=== PATIENT | male | born 1955 | race Caucasian/White ===

== ENCOUNTER 2017-09-03 12:38 | Inpatient (IN) | payer OTHER, BC ==
[~2017-09-03] VITALS: Ht 185.4 cm; Wt 120.2 kg
--- NOTE | ~2017-09-03 | D ---
[facility] [place] [address] DISCHARGE SUMMARY Name: CHATO BOURGEOIS Room #: 219-P [facility] IN M.R.#: [id number] Admission: 09/03/17 Attend Phys: Lucio Greenwood MD Discharge: 09/06/17 Date of : 53 Report #: [id number] THIS REPORT FOR: //name// CC: Sam Greenwood Juventino Poole DATE OF SERVICE: 09/06/2017 HISTORY OF PRESENT ILLNESS: The patient is a 62-year-old man with history of ischemic cardiomyopathy and coronary artery disease, as well as history of aflutter, who came to the hospital with heart palpitations. The patient did have an ablation in the past. At this time, he was found to be in aflutter again. Please refer to the admission H and P for details. The patient was hospitalized. He was started on Cardizem drip, that controlled his heart rate. Extractor Puller was consulted. Cardiac echo was obtained. The patient was found to have ejection fraction of 35%. The patient had cardioversion on 09/05/2017. He did well, and he remained in normal sinus rhythm. He is already on diltiazem and Coreg. Amiodarone was added to his regimen. Currently, the patient feels well, and he is asymptomatic. He will be discharged home with close outpatient followup. DISCHARGE DIAGNOSIS: Atrial flutter, status post cardioversion on 09/05/2017. Currently, normal sinus rhythm. SECONDARY DIAGNOSES: Includes coronary artery disease, status post coronary artery bypass grafting surgery in 1997; CHF, systolic dysfunction with current ejection fraction 35%, hypertension, dyslipidemia, gastroesophageal reflux disease, depression, BPH, sleep apnea, obesity, and history of atrial flutter, status post myocardial ablation. DISCHARGE MEDICATIONS: Please refer to the medication reconciliation list. As noted, amiodarone is started, 400 mg a day on this admission. DISPOSITION: The patient is discharged home. FOLLOWUP PLAN: [facility] [address] [place] [address] DISCHARGE SUMMARY Name: CHRISTELLECHATO Room #: 219-P [facility] IN M.R.#: [id number] Admission: 09/03/17 Attend Phys: Lucio Greenwood MD Discharge: 09/06/17 Date of : 53 Report #: [id number] 1. Follow up with the auto garage mechanic in 10 days as advised. 2. Follow up with the primary care physician as planned. <ELECTRONICALLY SIGNED> By: Lucio Greenwood MD 09/06/17 1635 1137 1200 Lucio Greenwood MD /nt
--- NOTE | ~2017-09-03 | 2DMMODE ---
[facility] [address] [place] [address] 2 D/M-MODE ECHOCARDIOGRAM Name: CHATO BOURGEOIS Room #: 219-P ADM IN M.R.#: [id number] Admission: 09/03/17 Attend Phys: Lucio Greenwood Discharge: Date of : 53 Date of Service: 09/04/17 1108 Report #: [id number] THIS REPORT FOR: //name// APPROVED REPORT Study performed: 09/04/2017 10:18:05 EXAM: Comprehensive 2D, Doppler, and color-flow Echocardiogram Patient Location: Echo lab Room #: 219 Status: routine BSA: 2.39 HR: 70 bpm BP: 105/67 mmHg Rhythm: Atrial Fibrillation Other Information Study Quality: Good Indications Atrial Fibrillation Hx: CABG, stents, ISCM, HTN, HLP, COPD 2D Dimensions RVDd: 35.60 mm LVEF(%): 20.56 (>50%) IVSd: 10.40 (7-11mm) LVOT Diam: 21.64 (18-24mm) LVDd: 62.78 mm PWd: 10.01 (7-11mm) Ascending Ao: 33.90 (22-36mm) LVDs: 56.77 (25-40mm) Aortic Root: 37.57 mm Erwin's LVEF: 20.56 % Volumes Left Atrial Volume (Systole) Single Plane 4CH: 52.99 mL Single Plane 2CH: 60.22 mL LA ESV Index: 25.00 mL/m2 Aortic Valve AoV Peak Mark.: 1.43 m/s AO Peak Gr.: 8.13 mmHg LVOT Max P.67 mmHg LVOT Max V: 0.80 m/s LESLI Vmax: 2.07 cm2 Mitral Valve MV Decel. Time: 208.17 ms [facility] [place] [address] 2 D/M-MODE ECHOCARDIOGRAM Name: [facility] Room #: 219-[facility] IN M.R.#: [id number] Admission: 09/03/17 Attend Phys: Lucio Greenwood Discharge: Date of : 53 Date of Service: 09/04/17 1108 Report #: [id number] E Max Mark.: 0.78 m/s Pulmonary Valve PV Peak Mark.: 1.11 m/s PV Peak Gr.: 5.05 mmHg Tricuspid Valve TR Peak Mark.: 2.20 m/s RAP Estimate: 5.00 mmHg TR Peak Gr.: 19.48 mmHg PA Pressure: 24.00 mmHg Left Ventricle Left ventricle is moderately dilated. There is normal left ventricular wall thickness. Left ventricular systolic function is moderately decreased. LVEF 30-35%. Inferior and inferolateral hypokinesis This study is not technically sufficient to allow evaluation of the LV diastolic function due to atrial fibrillation. Right Ventricle The right ventricle is normal size. Right ventricle is mildly hypokinetic. Atria The left atrium size is normal. The right atrium size is normal. Aortic Valve The aortic valve is mildly sclerotic. Mild aortic regurgitation. There is no aortic valvular stenosis. Mitral Valve The mitral valve is normal in structure. Trace to mild mitral regurgitation. Tricuspid Valve The tricuspid valve is normal in structure. Trace tricuspid regurgitation. Estimated PAP is 25mmHg. Pulmonic Valve The pulmonary valve is normal in structure. Mild pulmonic regurgitation. Great Vessels The aortic root measures at the upper limits of normal. The ascending aorta is normal in size. IVC is normal in size and collapses >50% with inspiration. [facility] [address] [place] [address] 2 D/M-MODE ECHOCARDIOGRAM Name: [facility] Room #: 219-P ADM IN M.R.#: [id number] Admission: 09/03/17 Attend Phys: Lucio Greenwood Discharge: Date of : 53 Date of Service: 09/04/17 1108 Report #: [id number] Pericardium There is no pericardial effusion. <Conclusion> Left ventricular systolic function is moderately decreased. LVEF 35%. Inferior and inferolateral hypokinesis The aortic valve is mildly sclerotic. Mild aortic regurgitation, no stenosis The mitral valve is normal in structure. Trace to mild mitral regurgitation. Pulmonary artery pressure of 25mmHg There is no pericardial effusion. <ELECTRONICALLY SIGNED> By: Bill Bianchi MD, [facility] 09/04/17 1108 1108 1108 Bill Bianchi MD, FAC /INF
--- NOTE | ~2017-09-03 | EKG ---
[place] [address] [facility] [place] [address] ELECTROCARDIOGRAM REPORT Name: CHATO BOURGEOIS Room #: 219-P ADM IN M.R.#: [id number] Admission: 09/03/17 Attend Phys: Lucio Greenwood MD Discharge: Date of : 53 Report #: [id number] THIS REPORT FOR: //name// [facility] Test Date: 2017-09-04 Test Time: 06:05:43 Pat Name: CHATO BOURGEOIS Department: Room: 219 P Gender: M Outsewer: MICHEL : 1955 Requested By: Bill Bianchi Order Number: [id number] MD: Bill Bianchi Measurements Intervals [place] Rate: 63 P: SC: QRS: -45 QRSD: 105 T: 52 QT: 468 QTc: 480 Interpretive Statements Atrial flutter LAD, consider left anterior fascicular block Poor R wave progression Compared to ECG 08/07/2013 02:41:31 Heart rate has slowed Electronically Signed On 09-04-2017 8:46:07 GATE SERVICES SUPERVISOR by Bill Bianchi [email or web address] <ELECTRONICALLY SIGNED> By: Bill Bianchi MD, [facility] 09/04/17 0846 Bill Bianchi MD, [facility] /EPI
--- NOTE | ~2017-09-03 | EKG ---
[address] [place] [address] ELECTROCARDIOGRAM REPORT Name: CHATO BOURGEOIS Room #: 219-P ADM IN M.R.#: [id number] Admission: 09/03/17 Attend Phys: Lucio Greenwood MD Discharge: Date of : 53 Report #: [id number] THIS REPORT FOR: //name// [facility] ED Test Date: 2017-09-03 Test Time: 12:52:54 Pat Name: CHATO BOURGEOIS Department: Room: 219 Gender: M Waiter: YENY : 1955 Requested By: Yared Washburn Order Number: [id number] MD: Bill Bianchi Measurements Intervals [place] Rate: 152 P: 207 ID: 80 QRS: -13 QRSD: 111 T: 75 QT: 300 QTc: 477 Interpretive Statements Supraventricular tachycardia Nonspecific ST segment abnormality No previous ECGs available for comparison Electronically Signed On 09-04-2017 8:40:24 MORTISING MACHINE OPERATOR by Bill Bianchi [email or web address] <ELECTRONICALLY SIGNED> By: Bill Bianchi MD, [facility] 09/04/17 0840 1252 1252 Bill Bianchi MD, FACC /EPI
--- NOTE | ~2017-09-03 | EKG ---
[address] [address] ELECTROCARDIOGRAM REPORT Name: CHATO BOURGEOIS Room #: 219-P ADM IN M.R.#: [id number] Admission: 09/03/17 Attend Phys: Lucio Greenwood MD Discharge: Date of : 53 Report #: [id number] THIS REPORT FOR: //name// [facility] Test Date: 2017-09-05 Test Time: 08:53:24 Pat Name: CHATO BOURGEOIS Department: Room: 219 P Gender: M Forklift Picker: MADINA : 1955 Requested By: Bill Bianchi Order Number: [id number] MD: Bill Bianchi Measurements Intervals [place] Rate: 54 P: 21 MS: 217 QRS: -42 QRSD: 117 T: 41 QT: 480 QTc: 455 Interpretive Statements Sinus rhythm Borderline prolonged [place] interval LAD Compared to ECG 09/04/2017 06:05:43 Atrial flutter no longer present Electronically Signed On 09-06-2017 7:43:48 LINK FABRIC MACHINE OPERATOR by Bill Bianchi [email or web address] <ELECTRONICALLY SIGNED> By: Bill Bianchi MD, [facility] 09/06/17 0743 2 Bill Bianchi MD, [facility] /EPI
--- NOTE | ~2017-09-03 | CATHLAB ---
[facility] [address] [place] [address] INVASIVE PROCEDURE REPORT Name: CHATO BOURGEOIS Room #: 219-P ADM IN M.R.#: [id number] Admission: 09/03/17 Attend Phys: Lucio Greenwood Discharge: Date of : 53 Date of Service: 09/05/17914 Report #: [id number] THIS REPORT FOR: //name// CC: Sam Castellanos MD [facility] Lucio Graceprieto Poole DATE OF DICTATION: 09/05/2017. PROCEDURE: Cardioversion. INDICATIONS: Atrial flutter. PROCEDURE IN DETAIL: The potential benefits and risks of the procedure were discussed at length with the patient who understood. Full written and informed consent was obtained. The patient was sedated with intravenous Versed and fentanyl, 50 biphasic joules were applied to the chest with prompt conversion of atrial flutter to sinus rhythm. He remained in hemodynamically, electrically and neurologically stable condition and was transported back to his hospital room. SUMMARY: Successful cardioversion of atrial flutter to sinus rhythm. <ELECTRONICALLY SIGNED> By: Bill Bianchi MD, [facility] 09/06/17 0744 0915 1048 Bill Bianchi MD, FACC /nt
--- NOTE | ~2017-09-03 | H ---
[facility] [place] [address] HISTORY AND PHYSICAL Name: CHATO BOURGEOIS Room #: 219-P ADM IN M.R.#: [id number] Admission: 09/03/17 Attend Phys: Lucio Greenwood MD Discharge: Date of : 53 Report #: [id number] THIS REPORT FOR: //name// CC: Sam Greenwood Juventino Poole DATE OF SERVICE: 09/03/2017 CHIEF COMPLAINT: Heart palpitations. HISTORY OF PRESENT ILLNESS: The patient is a 62-year-old man with complicated cardiac history, who developed heart palpitations earlier today. The patient has history of atrial flutter, and he is status post myocardial ablation. The patient also has history of coronary artery disease and congestive heart failure. His last followup with fiberglass finisher was more than a year ago. He has not followed up since then. The patient states that he developed heart palpitations earlier today. He also had shortness of breath. He came to the Emergency Room. He was found to have atrial flutter. He is started on Cardizem drip. Heart rate was in 150s. Now heart rate is much better, and the patient's symptoms have improved significantly. PAST MEDICAL HISTORY: 1. Coronary artery disease, status post coronary artery bypass grafting surgery in 1997. 2. Congestive heart failure, ejection fraction 35-40% based on echo in 02/2016. 3. Hypertension. 4. Dyslipidemia. 5. GERD. 6. Depression. 7. BPH. 8. History of atrial flutter, status post myocardial ablation. 9. Sleep apnea. CURRENT MEDICATIONS: Reviewed and documented in the patient's chart. FAMILY HISTORY: The patient reports strong family history of coronary artery disease. Both parents have coronary artery bypass grafting surgery. SOCIAL HISTORY: The patient does not smoke cigarettes. He reports occasional alcohol intake. REVIEW OF SYSTEMS: As above in HPI section. All others negative. [facility] [address] [place] [address] HISTORY AND PHYSICAL Name: CHATO BOURGEOIS Room #: 219-P ADM IN [facility].#: [id number] Admission: 09/03/17 Attend Phys: Lucio Greenwood MD Discharge: Date of : 53 Report #: [id number] PHYSICAL EXAMINATION: GENERAL: The patient is a middle-aged man who is in no apparent distress. VITAL SIGNS: His blood pressure is 141/88, heart rate is between 130 and 140, respiration is 20, temperature is 97.0. HEENT: Pupils are equal. Eye movements are normal. The patient has anicteric sclerae. NECK: Supple. He has no JVD. Carotid bruits are not appreciated. RESPIRATORY: Chest moves symmetrically with breathing. LUNGS: Clear to auscultation bilaterally. CARDIOVASCULAR: The patient has irregularly irregular heart rate. He has no murmurs, gallops or rubs. GASTROINTESTINAL: Abdomen is soft, nontender, and nondistended. The patient has no hepatomegaly or splenomegaly. MUSCULOSKELETAL: There is no edema, cyanosis or clubbing. No joint deformities appreciated. SKIN: The patient has no skin lesions. Skin is dry and warm. LABORATORY DATA: Basic metabolic profile is normal. Random glucose is 151. Liver function tests are normal. Troponin is undetectable. CBC with differential is normal. Platelets slightly low at 149. ASSESSMENT AND PLAN: 1. Atrial flutter, recurrent problem. The patient is on Cardizem drip. Symptomatically, he feels much better. Cardiology has already evaluated the patient. Consultation is very much appreciated. 2. History of coronary artery disease, status post CABG in 1997. No chest pain. EKG shows no ST segment changes. Troponin is undetectable. 3. History of congestive heart failure, with ejection fraction between 30% and 35%, based on echo in 02/2016. Cardiac echo ordered. 4. Dyslipidemia. On Crestor. 5. Sleep apnea. Continue CPAP per home regimen. 6. Deep venous thrombosis prophylaxis. Unnecessary, the patient is on Eliquis. <ELECTRONICALLY SIGNED> By: Lucio Greenwood MD 09/05/17 0746 1729 1805 Lucio Greenwood MD /nt
--- NOTE | ~2017-09-03 | EKG ---
[address] [address] ELECTROCARDIOGRAM REPORT Name: CHATO BOURGEOIS Room #: 219-P ADM IN M.R.#: [id number] Admission: 09/03/17 Attend Phys: Lucio Greenwood MD Discharge: Date of : 53 Report #: [id number] THIS REPORT FOR: //name// [facility] Test Date: 2017-09-05 Test Time: 06:35:37 Pat Name: CHATO BOURGEOIS Department: Room: 219 P Gender: M Acid Conditioner: MADINA : 1955 Requested By: Sam Castellanos Order Number: [id number] MD: Bill Bianchi Measurements Intervals [place] Rate: 72 P: [place]: QRS: -44 QRSD: 107 T: 58 QT: 430 QTc: 471 Interpretive Statements Atrial flutter Leftward axis Poor R wave progression Compared to ECG 09/04/2017 06:05:43 No significant change was found Electronically Signed On 09-06-2017 7:38:35 TILE CONDUIT LAYER by Bill Bianchi [email or web address] <ELECTRONICALLY SIGNED> By: Bill Bianchi MD, [facility] 09/06/17 0738 4 4 Bill Bianchi MD, [facility] /EPI
[2017-09-03 04:00] VITALS: BP 124/77
[~2017-09-03 12:38] MED LIST: ADVAIR HFA 1112 UNIT INH; ASPIRIN325; ASPIRIN325 PO; ATENOLOL 100MG100 M2 PO; ATENOLOL 50MG T50 M1 PO; CARDIZEM CD 18180 M3 PO; CARVEDILOL6.25 MG PO; COREG PO; COZAAR 25 MG TA25 MG PO; CRESTOR40 MG PO; FLOMAX PO; IMDUR 60 MG TAB60 M1 PO; LASIX 20 MG TAB20 MG PO; NITROGLYCERIN0.4 MG SUBLING; PLAVIX 75 MG TA75 M1 PO; PLAVIX 75 MG TA75 MG PO; POTASSIUM20 PO; PRADAXA150 MG PO; PRILOSEC 20 MG20 MG PO; PROAIR HFA8.5 GM INH; PROTONIX40 M2 PO; PROZAC40 MG PO; SLOW-MAG64 MG PO; XANAX 0.5 MG0.5 M1 PO; ZETIA10 MG PO; ZYRTEC10 M1 PO
[2017-09-03 12:51] VITALS: BP 150/72
[2017-09-03 13:10] LABS: HEMATOCRIT 46.7 % (42.0-52.0); HEMOGLOBIN 16.2 gm/dL (14.0-18.0); MCH 31.8 pg (26.0-34.0); MCHC 34.6 g/dL (28.0-37.0); MCV 91.9 fL (80.0-100.0); PLATELET COUNT 149 thou/uL (150-400); RBC 5.08 mil/uL (4.50-6.00); RDW 13.5 % (10.5-14.5); WBC 7.6 thou/uL (4.0-11.0)
[2017-09-03 13:12] LABS: MANUAL DIFF YES
[2017-09-03] MEDS ORDERED: ASPIR 8181 MG PO (13:17)
[2017-09-03] MEDS ORDERED: PACERONE 200 M200 M1 PO (13:18)
[2017-09-03] MEDS ORDERED: CARVEDILOL6.25 MG (13:18)
[2017-09-03 13:19] LABS: ANION GAP 10 mmol/L (7-16); BUN 7 mg/dL (7-18); CALCIUM 9.6 mg/dL (8.5-10.1); CHLORIDE 102 mmol/L (98-107); CO2 26 mmol/L (21-32); CREATININE 1.2 mg/dL (0.7-1.3); GLUCOSE 151 mg/dL (74-106); POTASSIUM 3.8 mmol/L (3.5-5.1); SODIUM 138 mmol/L (136-145)
[2017-09-03] MEDS ORDERED: COZAAR 25 MG TA25 M1 PO (13:19)
[2017-09-03] MEDS ORDERED: ELIQUIS5 MG PO (13:19)
[2017-09-03] MEDS ORDERED: PRILOSEC OTC20 MG PO (13:20)
[2017-09-03 13:27] LABS: ALKALINE PHOSPHATASE 125 U/L (46-116); SGOT 70 U/L (15-37); SGPT 81 U/L (30-65); TOTAL BILIRUBIN 0.4 mg/dL (<0.1-1.0); TOTAL PROTEIN 7.8 g/dL (6.4-8.2); TROPONIN-I < 0.04 ng/mL (<0.06)
[2017-09-03 13:34] LABS: ABSOLUTE NEUTROPHILS 5.6 thou/uL (1.4-8.2); TOTAL CELL COUNT 100
[2017-09-03 15:36] VITALS: BP 141/88
[2017-09-03 19:06] VITALS: BP 101/64
[2017-09-03 23:58] VITALS: BP 120/64
[2017-09-04 04:16] VITALS: BP 118/62
[2017-09-04 08:42] VITALS: BP 105/67
[2017-09-04 12:08] VITALS: BP 117/64
[2017-09-04 15:54] VITALS: BP 100/56
[2017-09-04 20:15] VITALS: BP 113/62; BP 138/64
[2017-09-05 04:15] VITALS: BP 113/62
[2017-09-05 12:25] VITALS: BP 133/68
[2017-09-05 15:36] VITALS: BP 108/54
[2017-09-05 20:54] VITALS: BP 111/50
[2017-09-06 00:01] VITALS: BP 95/54
[2017-09-06 04:15] VITALS: BP 114/56
[2017-09-06 08:00] VITALS: BP 124/56
[2017-09-06 11:21] VITALS: BP 119/54
[2017-09-06] MEDS ORDERED: PACERONE 200 M200 M1 PO (11:41)
[2017-09-06] MEDS ORDERED: CARVEDILOL12.5 MG PO (11:41)
[2017-09-06 11:59] VITALS: BP 119/54
== END 2017-09-06 14:00 | disposition home or self-care (01) | DRG 309 ==
LOC: ER 12:38 → 2N 14:42 → EROBS 14:42 → 2N 15:38 → ENTRNSPT 09-06 13:46 → EDTRNSPTSTS 09-06 13:49 → 2N 09-06 14:00
PROVIDERS: Emergency Medicine
PROC: 5A2204Z Restoration of Cardiac Rhythm, Single (ICD-10-PCS; principal; 2017-09-05)
DX: I48.92 Unspecified atrial flutter (principal); I50.20 Unspecified systolic (congestive) heart failure; E78.00 Pure hypercholesterolemia, unspecified; K21.9 Gastro-esophageal reflux disease without esophagitis; F32.9 Major depressive disorder, single episode, unspecified; F41.9 Anxiety disorder, unspecified; I48.0 Paroxysmal atrial fibrillation; E78.5 Hyperlipidemia, unspecified; I25.5 Ischemic cardiomyopathy; N40.0 Benign prostatic hyperplasia without lower urinary tract symptoms; J44.9 Chronic obstructive pulmonary disease, unspecified; I25.10 Atherosclerotic heart disease of native coronary artery without angina pectoris; I11.0 Hypertensive heart disease with heart failure; E66.9 Obesity, unspecified; G47.33 Obstructive sleep apnea (adult) (pediatric); Z79.899 Other long term (current) drug therapy; Z87.891 Personal history of nicotine dependence; I25.2 Old myocardial infarction; Z95.1 Presence of aortocoronary bypass graft; Z68.35 Body mass index [BMI] 35.0-35.9, adult; Z95.5 Presence of coronary angioplasty implant and graft; Z90.49 Acquired absence of other specified parts of digestive tract
CPT/HCPCS: 10194

== ENCOUNTER 2018-08-27 14:12 | Inpatient (IN) | payer OTHER, BC ==
[~2018-08-27] VITALS: Ht 185.4 cm; Wt 119.9 kg
--- NOTE | ~2018-08-27 | EKG ---
[address] [address] ELECTROCARDIOGRAM REPORT Name: CHATO BOURGEOIS Room #: 210-P ADM IN M.R.#: [id number] Admission: 08/27/18 Attend Phys: Sam Castellanos MD, Discharge: Date of : 53 Report #: [id number] THIS REPORT FOR: //name// [facility] Test Date: 2018-08-30 Test Time: 07:18:52 Pat Name: CHATO BOURGEOIS Department: Room: 210 P Gender: M Management Intern: MADINA : 1955 Requested By: Mandy Santos Order Number: [id number] MD: Sha Alonso Measurements Intervals [place] Rate: 61 P: 64 [place]: 202 QRS: -27 QRSD: 120 T: 43 QT: 513 QTc: 517 Interpretive Statements Sinus rhythm Nonspecific intraventricular conduction delay Compared to ECG 08/29/2018 08:26:53 No significant changes Electronically Signed On 08-30-2018 12:04:17 HANDKERCHIEF MAKER by Sha Alonso [email or web address] <ELECTRONICALLY SIGNED> By: Sha Alonso MD 08/30/18 1204 7 7 Sha Alonso MD /AZAM
--- NOTE | ~2018-08-27 | TEE ---
[facility] [place] [address] TRANSESOPHAGEAL ECHOCARDIOGRAM Name: CHATO BOURGEOIS Room #: 210-P ADM IN M.R.#: [id number] Admission: 08/27/18 Attend Phys: Sam Castellanos, Discharge: Date of : 53 Date of Service: 08/29/18 0828 Report #: [id number] THIS REPORT FOR: //name// APPROVED REPORT Study performed: 08/29/2018 07:46:20 EXAM: Comprehensive 2D, Doppler, and color-flow Echocardiogram Patient Location: [facility] Room #: 210 Status: routine BSA: 2.42 HR: 88 bpm BP: 116/73 mmHg Rhythm: Atrial Fibrillation Other Information Study Quality: Excellent Indications Atrial Fibrillation Echo Enhancing Agent Indication: Rule out Shunt Agent(s) / Amount(s) Used: Agitated Saline 7 cc Procedure After obtaining informed consent, patient underwent transesophageal echo in the [facility]. Type of Sedation : Conscious Sedation Sedation was administered by Marry Khan RN. Sedation was achieved intravenously with: Versed (6 mg) Fentanyl (75 mcg) Transesophageal probe was inserted and advanced into esophagus without difficulty by Bill Bianchi MD. Echo enhancement indication: R/O Septal defect. Echo enhancement agent administered: Agitated Saline The NANDO was performed without complications. Throughout the procedure, the blood pressure, pulse oximetry, cardiac rhythm, and rate were monitored. The patient tolerated the procedure without adverse effects. Recovery from conscious sedation was uneventful and vital signs were stable. [facility] [address] [place] [address] TRANSESOPHAGEAL ECHOCARDIOGRAM Name: [facility] Room #: 210-P ADM IN M.R.#: [id number] Admission: 08/27/18 Attend Phys: Sam Castellanos, Discharge: Date of : 53 Date of Service: 08/29/18 0828 Report #: [id number] Left Ventricle Left ventricle is dilated. There is normal left ventricular wall thickness. Left ventricular ejection fraction is severely decreased. LVEF 20%. Right Ventricle The right ventricle is normal size. Right ventricle is hypokinetic. Atria Left atrium is dilated. No thrombus is visualized in the left atrium or appendage. No shunting by contrast bubble injection Right atrium is dilated. Aortic Valve The aortic valve is minimally sclerotic Trace aortic regurgitation. There is no aortic valvular stenosis. Mitral Valve The mitral valve is normal in structure. Mild mitral regurgitation. No evidence of mitral valve stenosis. Tricuspid Valve The tricuspid valve is normal in structure. Mild tricuspid regurgitation. Pulmonic Valve The pulmonary valve is normal in structure. There is no pulmonic valvular regurgitation. Great Vessels The aortic root is normal in size. The ascending aorta is normal in size. IVC is normal in size and collapses >50% with inspiration. Pericardium There is no pericardial effusion. <Conclusion> Left ventricular ejection fraction is severely decreased. LVEF 20%. Both atria are dilated. No thrombus is visualized in the left atrium or appendage. No shunting by contrast bubble injection The aortic valve is minimally sclerotic, no stenosis. Trace aortic regurgitation. [facility] [address] [place] [address] TRANSESOPHAGEAL ECHOCARDIOGRAM Name: CHATO BOURGEOIS Room #: 210-P ADM IN M.R.#: [id number] Admission: 08/27/18 Attend Phys: Sam Castellanos, Discharge: Date of : 53 Date of Service: 08/29/18827 Report #: [id number] The mitral valve is normal in structure. Mild mitral regurgitation. There is no pericardial effusion. <ELECTRONICALLY SIGNED> By: Bill Bianchi MD, FACC 08/29/18827 7 7 Bill Bianchi MD, FACC /INF
--- NOTE | ~2018-08-27 | CATHLAB ---
[facility] [place] [address] INVASIVE PROCEDURE REPORT Name: CHATO BOURGEOIS Room #: 210-P [facility] IN M.R.#: [id number] Admission: 08/27/18 Attend Phys: Sam Castellanos, Discharge: 08/30/18 Date of : 53 Date of Service: 08/29/18802 Report #: [id number] THIS REPORT FOR: //name// CC: Sam Grahamradha Poole PROCEDURE: Cardioversion INDICATION: Atrial flutter. PROCEDURE: The potential benefits and risks of the procedure were discussed at length with the patient who understood. Full written and informed consent was obtained. The patient was sedated with intravenous Versed and fentanyl, 20 biphasic synchronous joules were applied to the chest with prompt conversion of atrial flutter to sinus rhythm. He remained in hemodynamically, electrically and neurologically stable condition following the procedure and was transported back to his hospital room. <ELECTRONICALLY SIGNED> By: Blil Bianchi MD, FACC 08/30/18 1650 2 0811 Bill Bianchi MD, FACC /nt
--- NOTE | ~2018-08-27 | EKG ---
[address] [address] ELECTROCARDIOGRAM REPORT Name: CHATO BOURGEOIS Room #: 210-P ADM IN M.R.#: [id number] Admission: 08/27/18 Attend Phys: Sam Castellanos MD, Discharge: Date of : 53 Report #: [id number] THIS REPORT FOR: //name// [facility] Test Date: 2018-08-29 Test Time: 08:26:53 Pat Name: CHATO BOURGEOIS Department: Room: 210 P Gender: M Bridge Crane Operator: GR : 1955 Requested By: Sam Castellanos Order Number: [id number] MD: Bill Bianchi Measurements Intervals [place] Rate: 54 P: 8 [place]: 219 QRS: -28 QRSD: 123 T: 26 QT: 553 QTc: 525 Interpretive Statements Sinus rhythm Borderline prolonged [place] interval Compared to ECG 08/28/2018 07:31:46 Atrial flutter no longer present Electronically Signed On 08-29-2018 8:54:48 BUSINESS TRANSFORMATION MANAGER by Bill Bianchi [email or web address] <ELECTRONICALLY SIGNED> By: Bill Bianchi MD, [facility] 08/29/18 0854 5 5 Bill Bianchi MD, [facility] /EPI
--- NOTE | ~2018-08-27 | EKG ---
[address] [address] ELECTROCARDIOGRAM REPORT Name: CHATO BOURGEOIS Room #: 210-P ADM IN M.R.#: [id number] Admission: 08/27/18 Attend Phys: Sam Castellanos MD, Discharge: Date of : 53 Report #: [id number] THIS REPORT FOR: //name// [facility] Test Date: 2018-08-28 Test Time: 07:31:46 Pat Name: CHATO BOURGEOIS Department: Room: 210 P Gender: M Track Service Person: MADINA : 1955 Requested By: Tiffanie Sales Order Number: [id number] MD: Wilmer Rodríguez Measurements Intervals [place] Rate: 94 P: IN: QRS: -18 QRSD: 113 T: 121 QT: 388 QTc: 486 Interpretive Statements Atrial flutter Borderline intraventricular conduction delay Compared to ECG 09/05/2017 08:53:24 Sinus rhythm no longer present Electronically Signed On 08-28-2018 8:23:19 INSTRUMENT SPECIALIST by Wilmer Rodríguez [email or web address] <ELECTRONICALLY SIGNED> By: Wilmer Rodríguez MD 08/28/18 0823 0731 0731 Wilmer Rodríguez MD /AZAM
--- NOTE | ~2018-08-27 | 2DMMODE ---
[facility] [address] [place] [address] 2 D/M-MODE ECHOCARDIOGRAM Name: CHATO BOURGEOIS Room #: 210-P ADM IN M.R.#: [id number] Admission: 08/27/18 Attend Phys: Sam Castellanos, Discharge: Date of : 53 Date of Service: 08/28/18 0905 Report #: [id number] THIS REPORT FOR: //name// APPROVED REPORT Study performed: 08/28/2018 08:23:04 EXAM: Comprehensive 2D, Doppler, and color-flow Echocardiogram Patient Location: Echo lab Room #: 210 Status: routine BSA: 2.42 HR: 100 bpm BP: 116/73 mmHg Rhythm: Atrial Fibrillation Other Information Study Quality: Adequate Indications Atrial Fibrillation Acute on chronic CHF. Hx: AFib, ablation, ISCM, CABG, COPD 2D Dimensions RVDd: 37.23 mm IVSd: 10.68 (7-11mm) LVOT Diam: 22.17 (18-24mm) LVDd: 62.48 mm PWd: 8.77 (7-11mm) Ascending Ao: 34.97 (22-36mm) LVDs: 58.52 (25-40mm) Aortic Root: 40.20 mm Volumes Left Atrial Volume (Systole) Single Plane 4CH: 57.30 mL Single Plane 2CH: 61.70 mL LA ESV Index: 26.00 mL/m2 Aortic Valve AoV Peak Mark.: 1.26 m/s AO Peak Gr.: 6.41 mmHg LVOT Max P.48 mmHg LVOT Max V: 0.91 m/s LESLI Vmax: 2.79 cm2 Mitral Valve MV Decel. Time: 149.93 ms MV E Max Mark.: 0.97 m/s [facility] [address] [place] [address] 2 D/M-MODE ECHOCARDIOGRAM Name: [facility] Room #: 210 ADM IN M.R.#: [id number] Admission: 08/27/18 Attend Phys: Sam Castellanos, Discharge: Date of : 53 Date of Service: 08/28/18 0905 Report #: [id number] Pulmonary Valve PV Peak Mark.: 0.94 m/s PV Peak Gr.: 3.61 mmHg Tricuspid Valve TR Peak Mark.: 2.33 m/s RAP Estimate: 5.00 mmHg TR Peak Gr.: 22.00 mmHg PA Pressure: 27.00 mmHg Left Ventricle Left ventricle is moderately dilated. There is normal left ventricular wall thickness. Left ventricular systolic function is severely decreased.globally LVEF is 20-25%. This study is not technically sufficient to allow evaluation of the LV diastolic function. Right Ventricle The right ventricle is normal size. Right ventricle is mild to moderately hypokinetic. Atria The left atrium size is normal. The right atrium size is normal. Aortic Valve The Aortic valve is mildly sclerotic. Mild aortic regurgitation. There is no aortic valvular stenosis. Mitral Valve The mitral valve is normal in structure. Mild mitral regurgitation. Tricuspid Valve The tricuspid valve is normal in structure. Mild tricuspid regurgitation. Estimated PAP is 30mmHg. Pulmonic Valve The pulmonary valve is normal in structure. Trace pulmonic regurgitation. Great Vessels Aortic root is mildly dilated. The ascending aorta is normal in size. IVC is normal in size and collapses >50% with inspiration. Pericardium [facility] [address] [place] [address] 2 D/M-MODE ECHOCARDIOGRAM Name: CHATO BOURGEOIS Room #: 210-P ADM IN M.R.#: [id number] Admission: 08/27/18 Attend Phys: Sam Castellanos, Discharge: Date of : 53 Date of Service: 08/28/18 0905 Report #: [id number] There is no pericardial effusion. <Conclusion> Left ventricle is moderately dilated. Left ventricular systolic function is severely decreased.globally LVEF is 20-25%. This study is not technically sufficient to allow evaluation of the LV diastolic function. Right ventricle is mild to moderately hypokinetic. The left atrium size is normal. The Aortic valve is mildly sclerotic. Mild aortic regurgitation. Mild mitral regurgitation. Mild tricuspid regurgitation. Estimated PAP is 30mmHg. Aortic root is mildly dilated. There is no pericardial effusion. <ELECTRONICALLY SIGNED> By: Sam Castellanos MD, FACC 08/28/18904 4 4 Sam Castellanos MD, FAC /INF
[~2018-08-27 14:12] MED LIST changes: +ASPIR 8181 MG PO; +CARVEDILOL12.5 MG PO; +CARVEDILOL6.25 MG; +COZAAR 25 MG TA25 M1 PO; +ELIQUIS5 MG PO; +PACERONE 200 M200 M1 PO; +PRILOSEC OTC20 MG PO
[2018-08-27 14:34] VITALS: BP 117/80
[2018-08-27 16:24] LABS: HEMATOCRIT 33.2 % (42.0-52.0); HEMOGLOBIN 10.7 gm/dL (14.0-18.0); MCH 28.4 pg (26.0-34.0); MCHC 32.2 g/dL (28.0-37.0); MCV 88.3 fL (80.0-100.0); RBC 3.76 mil/uL (4.50-6.00); WBC 6.5 thou/uL (4.0-11.0)
[2018-08-27 16:36] LABS: ALBUMIN 3.2 g/dL (3.4-5.0); CALCIUM 9.3 mg/dL (8.5-10.1); CREATININE 1.4 mg/dL (0.7-1.3); POTASSIUM 3.7 mmol/L (3.5-5.1); TOTAL BILIRUBIN 0.6 mg/dL (<0.1-1.0); TOTAL PROTEIN 7.1 g/dL (6.4-8.2)
[2018-08-27 20:15] VITALS: BP 122/66
[2018-08-27] MEDS ORDERED: VITAMIN D2000 UNIT PO (21:15)
[2018-08-27] MEDS ORDERED: BYSTOLIC 5 MG5 M1 PO (21:15)
[2018-08-28] VITALS (14 sets, daily range): BP systolic 92–128; BP diastolic 48–77
[2018-08-29 03:54] LABS: CALCIUM 9.3 mg/dL (8.5-10.1); CREATININE 1.5 mg/dL (0.7-1.3); POTASSIUM 3.7 mmol/L (3.5-5.1)
[2018-08-29 04:38] VITALS: BP 108/63
[2018-08-29 11:08] VITALS: BP 105/54
[2018-08-29 11:24] VITALS: BP 105/54
[2018-08-29 15:13] VITALS: BP 98/51
[2018-08-29 19:13] VITALS: BP 100/43
[2018-08-30 04:11] VITALS: BP 117/74
[2018-08-30 05:24] LABS: CALCIUM 9.2 mg/dL (8.5-10.1); CREATININE 1.4 mg/dL (0.7-1.3); POTASSIUM 3.6 mmol/L (3.5-5.1)
[2018-08-30 07:15] VITALS: BP 110/57
[2018-08-30] MEDS ORDERED: PACERONE 200 M200 M1 PO (07:59)
[2018-08-30] MEDS ORDERED: DEMADEX20 MG PO (08:10)
[2018-08-30 11:15] VITALS: BP 105/59
[2018-08-30 11:38] VITALS: BP 105/54
== END 2018-08-30 13:16 | disposition home or self-care (01) | DRG 308 ==
LOC: 2N 14:12 → ENTRNSPT 08-30 13:00 → 2N 08-30 13:16
PROVIDERS: Nurse Practitioner; Nurse Practitioner Adult Health
PROC: B24BZZ4 Ultrasonography of Heart with Aorta, Transesophageal (ICD-10-PCS; principal; 2018-08-29)
PROC: 5A2204Z Restoration of Cardiac Rhythm, Single (ICD-10-PCS; principal; 2018-08-29)
DX: I48.91 Unspecified atrial fibrillation (principal); I50.23 Acute on chronic systolic (congestive) heart failure; I25.10 Atherosclerotic heart disease of native coronary artery without angina pectoris; I25.5 Ischemic cardiomyopathy; J44.9 Chronic obstructive pulmonary disease, unspecified; G47.33 Obstructive sleep apnea (adult) (pediatric); I65.29 Occlusion and stenosis of unspecified carotid artery; E78.5 Hyperlipidemia, unspecified; Z96.659 Presence of unspecified artificial knee joint; I11.0 Hypertensive heart disease with heart failure; K21.9 Gastro-esophageal reflux disease without esophagitis; D64.9 Anemia, unspecified; I48.92 Unspecified atrial flutter; Z83.3 Family history of diabetes mellitus; Z83.49 Family history of other endocrine, nutritional and metabolic diseases; Z83.6 Family history of other diseases of the respiratory system; Z95.1 Presence of aortocoronary bypass graft; Z79.82 Long term (current) use of aspirin; Z79.899 Other long term (current) drug therapy; Z82.49 Family history of ischemic heart disease and other diseases of the circulatory system; Z87.891 Personal history of nicotine dependence; I25.2 Old myocardial infarction
CPT/HCPCS: 10081; 10797

== ENCOUNTER 2018-09-19 06:36 | Observation (INO) | payer OTHER, BC ==
[~2018-09-19] VITALS: Ht 185.4 cm; Wt 112.5 kg
--- NOTE | ~2018-09-19 | P ---
[facility] [address] PROCEDURE REPORT Name: CHATO BOURGEOIS Room #: [facility] Issa M.Mayelin.#: [id number] Admission: 09/19/18 Attend Phys: Domenico Cotton MD Discharge: 09/20/18 Date of : 53 Report #: [id number] THIS REPORT FOR: //name// CC: Sam Grahamradha Escaleraaker PREOPERATIVE DIAGNOSIS: Atrial fibrillation. POSTOPERATIVE DIAGNOSIS: Atrial fibrillation. HISTORY: The patient is a 63-year-old with history of atrial fibrillation, here for an ablation. PROCEDURE: 1. AFib ablation, CPT code 87028. 2. 3D mapping, CPT code 75665. 3. Intracardiac echo, CPT code 40273. 4. Focal ablation with creation of roofline, CPT code 44374. DESCRIPTION OF PROCEDURE: The patient underwent informed consent. We discussed the details of the procedure including the risks, which include but not limited to bleeding, vascular damage, stroke, SC as well as damage to the solomon conduction system requiring permanent pacemaker. He understood these risks and is willing to proceed. The patient was brought to the EP laboratory in a fasting and unsedated state, prepped and draped in a sterile fashion. I obtained access of the right femoral vein x 3, placing an 8-Pakistani, 7-Pakistani and 9-Pakistani short sheath using the modified Seldinger technique. Next, under fluoroscopy, I had placed a decapolar catheter in the coronary sinus and the ICE catheter in the right atrium. Using CartoSound, we created a detailed 3D geometry of the left atrium and merged this with a cardiac CT scan. Next, the patient was systemically heparinized and a transseptal was performed using a SL1 sheath with the [place] needle. Once in the left atrium, I placed a Lasso catheter and created a 3D geometry of the left atrium as well as a voltage map. Next, I exchanged the SL1 sheath for the carotid sheath and the cryoablation balloon and started isolating the veins. The patient had evidence of a left common ostium and to isolate this, he needed a total of 5 freezes with evidence of entrance and exit block post-ablation. I then turned my attention to the right-sided veins. While freezing the left-sided veins, I performed phrenic nerve pacing from the decapolar catheter placed in the SVC. The right superior pulmonary vein underwent a 4-minute freeze followed by a 200-second freeze. During the second freeze, the vein isolated within 55 seconds. The right inferior vein underwent a 4-minute freeze that resulted in isolation within 23 seconds. An additional 3-minute freeze was also performed. I then created a repeat voltage map, which showed isolation of the common ostium in the right superior and right inferior pulmonary veins. I [facility] [address] [place] [address] PROCEDURE REPORT Name: CHATO BOURGEOIS Room #: 211-P ALEXUS Glez#: [id number] Admission: 09/19/18 Attend Phys: Domenico Cotton MD Discharge: 09/20/18 Date of : 53 Report #: [id number] therefore decided to perform a roofline. I performed a total of 4 freezes of the left atrial roof from the left common ostium and then took the cryoballoon and placed it in the right superior vein and performed 2 additional freezes of the roof from this location. Repeat voltage map was created, which showed that we had essentially isolated the entire posterior wall of the left atrium. Pre-ablation, the patient was in sinus rhythm with sinus cycle length of 1280 milliseconds, AK interval 220 milliseconds, QRS duration 90 milliseconds, QT interval 550 milliseconds. Post-ablation, he remained in sinus rhythm with a sinus cycle length of 1276 milliseconds, AK interval of 200 milliseconds, QRS duration 90 milliseconds and QT interval 600 milliseconds. As such using intracardiac ultrasound, I verified there was no pericardial effusion. I then gave the patient systemic protamine and once the ACT was within acceptable range, all catheters and sheaths were pulled and hemostasis was obtained. CONCLUSIONS: 1. Successful AFib ablation with isolation of the 4 pulmonary veins. 2. Successful creation of a roofline with isolation of the posterior wall. By: 1132 1205 Domenico Cotton MD /nt
[~2018-09-19 06:36] MED LIST changes: +BYSTOLIC 5 MG5 M1 PO; +DEMADEX20 MG PO; +VITAMIN D2000 UNIT PO
[2018-09-19 07:10] VITALS: BP 148/42
[2018-09-19 07:12] LABS: ABSOLUTE NEUTROPHILS 4.6 thou/uL (1.4-8.2); BASOPHILS 1.4 % (0.0-2.0); EOSINOPHILS 2.1 % (0.0-3.0); HEMATOCRIT 37.7 % (42.0-52.0); HEMOGLOBIN 12.5 gm/dL (14.0-18.0); LYMPHOCYTES 26.5 % (24.0-44.0); MCH 28.5 pg (26.0-34.0); MCHC 33.3 g/dL (28.0-37.0); MCV 85.7 fL (80.0-100.0); MONOCYTES 6.1 % (1.0-8.0); PLATELET COUNT 211 thou/uL (150-400); POLYS 63.9 % (36.0-66.0); RDW 15.5 % (10.5-14.5); WBC 7.1 thou/uL (4.0-11.0)
[2018-09-19 07:19] LABS: CALCIUM 9.8 mg/dL (8.5-10.1); CREATININE 1.4 mg/dL (0.7-1.3); POTASSIUM 3.8 mmol/L (3.5-5.1)
[2018-09-19] MEDS ORDERED: PACERONE 200 M200 M1 PO (07:22)
[2018-09-19 07:25] LABS: ALBUMIN 3.6 g/dL (3.4-5.0); TOTAL BILIRUBIN 0.6 mg/dL (<0.1-1.0); TOTAL PROTEIN 8.1 g/dL (6.4-8.2)
[2018-09-19 07:32] LABS: APTT 27.6 Seconds (24.5-32.8); INR 1.1; PROTIME 11.4 Seconds (9.3-11.4)
[2018-09-19 13:30] VITALS: BP 126/53
--- NOTE | 2018-09-19 14:53 | NUR ---
ASSUMED CARE OF PATIENT AT 1250 FROM EP LAB. PATIENT IS A&O X 4. HE IS VERY ANXIOUS AND ASKING FOR ATIVAN. PATIENT'S AND DAUGHTER ARE AT THE BEDSIDE AND STAYED APPROX. 15 MIN AFTER THE PATIENT ADMITTED TO FLOOR. PATIENT HAS RIGHT GROIN AND RIGHT WRIST SITE, VERIFIED WITH EP NURSE. BOTH SITES ARE WITHOUT BLOOD, HEMATOMA OR EDEMA. INITIAL ADMISSION ASSESSMENT PERFORMED AND ADMISSION COMPLETED. PATIENT IS TO REMAIN ON BEDREST UNTIL 1805. CONTINUE WITH POC.
[2018-09-19 16:00] VITALS: BP 121/53
--- NOTE | 2018-09-19 17:30 | NUR ---
ASSUMED CARE OF PATIENT AT 1250 FROM EP LAP. PATIENT HAD VITALS TAKEN AUTOMATICALLY SCHEDULED FOR 3 HOURS AND REPORTED ON POST PROCEDURE FLOW SHEET. PATIENT REMAINS ON BEDREST AND WILL HAVE BANEGAS REMOVED AT 1800. PATIENT IS EATING DINNER AND DENIES ANY PAIN. PATIENT HAD POSITIVE RIGHT RADIAL AND PEDAL PULSES. PATIENT RIGHT GROIN SITE HAS A DIME SIZE BLOOD WHICH I JESUS A PEN SHAUN AROUND TO TRACK. PATIENT RESTING COMFORTABLY. PATIENT TO CONTINUE WITH POC.
[2018-09-19 20:10] VITALS: BP 112/51
[2018-09-20 05:33] VITALS: BP 124/62
[2018-09-20 07:10] VITALS: BP 128/58
--- NOTE | 2018-09-20 07:39 | NUR ---
PT STATED HE SLEPT REALLY WELL AFTER SLEEPING PILL, HOME CPAP ON THRU THE NOC, VSS, ABLATION SITES CDI THIS AM, WILL CON'T TO MONITOR PER PPOC.
[2018-09-20 10:20] VITALS: BP 128/58
--- NOTE | 2018-09-20 11:37 | NUR ---
assessment as charted - meds as per mar - up ad stephanie in room - no co's of pain or nausea rafael diet and fluids. groin and radial site intact - pt home this am - instruction re home meds/ care and follow given to patient - stated understanding of instruction given - iv and monitor removed prior to d/c. no co's time of e/c. left unit voa wheelchair - home via pvt vehicle accopanied by .
--- NOTE | 2018-09-20 14:51 | D ---
[facility] [place] [address] DISCHARGE SUMMARY Name: CHATO BOURGEOIS Room #: 211-P [facility] Issa Glez#: [id number] Admission: 09/19/18 Attend Phys: Domenico Cotton MD Discharge: 09/20/18 Date of : 53 Report #: [id number] THIS REPORT FOR: //name// CC: [facility] DISCHARGE DIAGNOSES: 1. Atrial fibrillation. 2. Cardiomyopathy. 3. Coronary artery disease. PROCEDURES PERFORMED: AFib ablation. HISTORY OF PRESENT ILLNESS: The patient is a 63-year-old recently with recurrent atrial fibrillation, here for an ablation. He underwent successful isolation of the veins and creation of a roof line with isolation of the posterior wall. There were no procedural complications. HOSPITAL COURSE: The patient was monitored in the CCU overnight. He did well, had no issues. He denied any chest pain, shortness of breath, fevers or chills. On physical exam, his heart was regular rate and rhythm with no evidence of elevated JVD. His lungs were clear to auscultation bilaterally. Abdomen soft, nontender, nondistended with no hepatosplenomegaly. Extremities: There is no clubbing, cyanosis, or edema and his right groin was healing nicely with some mild ecchymosis, but no hematoma. On telemetry, he remained in sinus rhythm throughout the night with no episodes of paroxysmal AFib. As such, he was deemed stable for discharge home. MEDICATIONS: He will continue with his current dose of amiodarone and anticoagulation therapy. He will continue his other cardiac medications. FOLLOWUP: He has followup with my nurse practitioner in 2 weeks and will see me in 3 months. <ELECTRONICALLY SIGNED> By: Domenico Cotton MD 09/20/18 1451 [phone] Domenico Cotton MD /nt
== END 2018-09-20 11:40 | disposition home or self-care (01) ==
LOC: CATH 06:36 → 2N 13:28 → ENTRNSPT 09-20 11:33 → EDTRNSPTSTS 09-20 11:37 → 2N 09-20 11:40
PROVIDERS: ADMIT Internal Medicine Cardiovascular Disease
DX: I48.91 Unspecified atrial fibrillation (principal); I42.9 Cardiomyopathy, unspecified; I25.10 Atherosclerotic heart disease of native coronary artery without angina pectoris; Z79.82 Long term (current) use of aspirin; Z79.899 Other long term (current) drug therapy; Z95.1 Presence of aortocoronary bypass graft
CPT/HCPCS: 62110; 62900; 65020; 65040; 70005

== ENCOUNTER → 2018-12-24 | Outpatient (CLI) | payer OTHER, BC ==
--- NOTE | 2018-12-24 14:18 | 2DMMODE ---
[facility] [place] [address] 2 D/M-MODE ECHOCARDIOGRAM Name: CHATO BOURGEOIS Room #: [facility]#: [id number] ������������� Admission: 12/24/18 ������������� Attend Phys: Domenico Cotton Discharge: ��� ������������� ��� Date of : 53 Date of Service: 12/24/18 1417 �� Report #: [id number] �������� ��������������������������������������������[id number] THIS REPORT FOR: //name// APPROVED REPORT Study performed: 12/24/2018 13:06:22 EXAM: Comprehensive 2D, Doppler, and color-flow Echocardiogram Patient Location: Out-Patient Status: routine BSA: 2.37 HR: 57 bpm BP: 128/64 mmHg Rhythm: NSR Other Information Study Quality: Adequate Indications Cardiomyopathy Hx: CABG, CHF, Afib/ablation, HTN HLP. 2D Dimensions RVDd: 41.27 mm IVSd: 10.92 (7-11mm) LVOT Diam: 21.82 (18-24mm) LVDd: 63.01 mm PWd: 10.96 (7-11mm) Ascending Ao: 35.03 (22-36mm) LVDs: 51.36 (25-40mm) Aortic Root: 38.92 mm Volumes Left Atrial Volume (Systole) Single Plane 4CH: 63.56 mL Single Plane 2CH: 70.03 mL LA ESV Index: 30.00 mL/m2 Aortic Valve AoV Peak Mark.: 1.61 m/s AO Peak Gr.: 10.32 mmHg LVOT Max P.04 mmHg LVOT Max V: 1.01 m/s LESLI Vmax: 2.34 cm2 Mitral Valve E/A Ratio: 3.9 MV Decel. Time: 176.99 ms [facility] [place] [address] [address] 2 D/M-MODE ECHOCARDIOGRAM Name: CHATO BOURGEOIS Room #: [facility]#: [id number] ������������� Admission: 12/24/18 ������������� Attend Phys: Domenico Cotton Discharge: ��� ������������� ��� Date of : 53 Date of Service: 12/24/18 1417 �� Report #: [id number] �������� ��������������������������������������������[id number] E Max Mark.: 1.13 m/s MV A Mark.: 0.29 m/s MV PHT: 51.33 ms IVRT: 59.98 ms Pulmonary Valve PV Peak Mark.: 1.34 m/s PV Peak Gr.: 7.23 mmHg Tricuspid Valve TR Peak Mark.: 2.90 m/s RAP Estimate: 5.00 mmHg TR Peak Gr.: 33.57 mmHg PA Pressure: 40.00 mmHg Left Ventricle Left ventricle is moderately dilated. There is normal left ventricular wall thickness. Left ventricular systolic function is moderately decreased.globally LVEF is 30-35%. Severe diastolic dysfunction is present (restrictive filling). Right Ventricle The right ventricle is normal size. Right ventricle is mildly hypokinetic. Atria The left atrium size is normal. The right atrium size is normal. Aortic Valve Aortic valve is trileaflet, mildly calcified. Mild aortic regurgitation. There is no aortic valvular stenosis. Mitral Valve The mitral valve is normal in structure. Mild to moderate mitral regurgitation. Tricuspid Valve The tricuspid valve is normal in structure. Mild tricuspid regurgitation. Estimated PAP is 40mmHg. Pulmonic Valve The pulmonary valve is normal in structure. Mild pulmonic regurgitation. Great Vessels Aortic root is mildly dilated at 3.9cm. The ascending aorta is normal in size. IVC is normal in size and collapses >50% with [facility] [address] [place] [address] 2 D/M-MODE ECHOCARDIOGRAM Name: CHATO BOURGEOIS Room #: [facility].#: [id number] ������������� Admission: 12/24/18 ������������� Attend Phys: Domenico Cotton Discharge: ��� ������������� ��� Date of : 53 Date of Service: 12/24/18 1417 �� Report #: [id number] �������� ��������������������������������������������[id number] inspiration. Pericardium There is no pericardial effusion. <Conclusion> Left ventricle is moderately dilated. Left ventricular systolic function is moderately decreased.globally LVEF is 30-35%. Severe diastolic dysfunction is present (restrictive filling). Right ventricle is mildly hypokinetic. The left atrium size is normal. Aortic valve is trileaflet, mildly calcified. Mild aortic regurgitation. Mild to moderate mitral regurgitation. Mild tricuspid regurgitation. Estimated PAP is 40mmHg. Aortic root is mildly dilated at 3.9cm. There is no pericardial effusion. ��������������������������������������������� <ELECTRONICALLY SIGNED> ���������������������������������������� By: Sam Castellanos MD, FACC ��������������������������������������������� 12/24/18 [phone] Sam Castellanos MD, FACC /INF
== END ==
LOC: CV 12-18 06:27
DX: I08.8 Other rheumatic multiple valve diseases (principal); I11.0 Hypertensive heart disease with heart failure; I50.9 Heart failure, unspecified; E78.5 Hyperlipidemia, unspecified; I48.91 Unspecified atrial fibrillation

== ENCOUNTER 2019-01-03 09:40 | Outpatient (CLI) | payer OTHER, BC ==
[~2019-01-03] VITALS: Ht 185.4 cm; Wt 117.6 kg
--- NOTE | ~2019-01-03 | P ---
[facility] [place] [address] PROCEDURE REPORT Name: CHATO BOURGEOIS Room #: 215-P [facility] MMandeep.#: [id number] Admission: 01/03/19 ������������������ Attend Phys: Domenico Cotton MD Discharge: ������������������ Date of : 53 Report #: [id number] THIS REPORT FOR: //name// CC: Domenico Cotton Juventino Poole DATE OF SERVICE: 01/03/2019 ICD IMPLANTATION: PREOPERATIVE DIAGNOSIS: Ischemic cardiomyopathy. POSTOPERATIVE DIAGNOSIS: Ischemic cardiomyopathy. PROCEDURES PERFORMED: Dual chamber ICD implantation. The patient is a 63-year-old with history of coronary artery disease, status post CABG with an ischemic cardiomyopathy with an ejection fraction of less than 35% and Hall Heart Association functional class 2-3 heart failure symptoms. He is also status post recent A-Fib ablation. He is here for ICD implantation for primary prevention of sudden cardiac . ANESTHESIA: The patient underwent MAC anesthesia with no anesthesia related complications. DESCRIPTION OF PROCEDURE: The patient underwent informed consent. We discussed the details of the procedure including the risks, which include but not limited to bleeding, infection, vascular damage, cardiac perforation and pneumothorax. He understood these risks and is willing to proceed. The patient was brought to the EP laboratory in fasting and sedated state, prepped and draped in a sterile fashion, received IV antibiotics and underwent a venogram showing patency of the left axillary vein. Next, lidocaine was injected below the level of clavicle. Incision was made, pocket was created over the prepectoral fascia. Access was obtained twice to the left axillary vein using the extrathoracic approach. Sheaths were positioned using the modified Seldinger technique. Leads were positioned into the right ventricular apex and the right atrial appendage both with adequate pacing and sensing thresholds. Leads were sutured to the prepectoral fascia with Ethibond. The pocket was irrigated with vancomycin. The device was connected and the pocket was closed in 2 layers using 2-0 for the deep layer, 3-0 for the middle layer and Surgical glue was placed to the outer skin layer. The patient awoke neurologically and hemodynamically intact. No complications and no significant bleed. The implanted device was a [employer] ICD model #[id number], serial #[id number]. [address] [address] PROCEDURE REPORT Name: CHATO BOURGEOIS Room #: 215-P [facility] [id number] Admission: 01/03/19 ������������������ Attend Phys: Domenico Cotton MD Discharge: ������������������ Date of : 53 Report #: [id number] Atrial lead was [employer], model #2088TC, 52 cm, serial #[id number]. RV lead: [employer], model #8605G43, serial #[id number]. The atrial lead demonstrated a P-wave of 1.5 millivolts, pacing impedance 680 ohms, pacing threshold 2.5 volts at 1 millisecond. The RV lead demonstrated R-wave at 11.7 millivolts, pacing impedance of 480 ohms and a pacing threshold of 0.5 volts at 0.5 milliseconds. The device was programmed to DDDR 60-120 mode. The VT zone was set at 180-220 beats per minute with ATP followed by max output shocks. The VF zone was set at greater than 222 beats per minute with ATP while charging followed by max output shocks. CONCLUSIONS: 1. Successful dual-chamber ICD implantation. 2. Satisfactory atrial and ventricular pacing and sensing thresholds. ��������������������������������������������� ���������������������������������������� By: ��������������������������������������������� 1438 0849 Domenico Cotton MD /nt
[~2019-01-03 09:40] MED LIST changes: +ADVAIR HFA 230M12 GM INH; +ALBUTEROL2.5 MG/31 INH; -ELIQUIS5 MG PO; +MUCINEX600 MG PO; +VENTOLIN HFA 1818 GM
[2019-01-03 10:17] LABS: ABSOLUTE NEUTROPHILS 3.6 thou/uL (1.4-8.2); BASOPHILS 1.2 % (0.0-2.0); EOSINOPHILS 1.6 % (0.0-3.0); HEMATOCRIT 31.2 % (42.0-52.0); HEMOGLOBIN 10.1 gm/dL (14.0-18.0); LYMPHOCYTES 21.7 % (24.0-44.0); MCHC 32.4 g/dL (28.0-37.0); MCV 86.6 fL (80.0-100.0); PLATELET COUNT 168 thou/uL (150-400); POLYS 68.5 % (36.0-66.0); RBC 3.61 mil/uL (4.50-6.00); RDW 16.7 % (10.5-14.5); WBC 5.3 thou/uL (4.0-11.0)
[2019-01-03 10:23] LABS: CALCIUM 9.6 mg/dL (8.5-10.1); CREATININE 1.2 mg/dL (0.7-1.3); POTASSIUM 4.1 mmol/L (3.5-5.1)
[2019-01-03 10:30] LABS: ALBUMIN 3.8 g/dL (3.4-5.0); APTT 25.5 Seconds (24.5-32.8); PROTIME 10.7 Seconds (9.3-11.4); TOTAL BILIRUBIN 0.6 mg/dL (<0.1-1.0); TOTAL PROTEIN 7.6 g/dL (6.4-8.2)
[2019-01-03 10:37] VITALS: BP 136/53
[2019-01-03] MEDS ORDERED: ZETIA10 MG PO (10:59)
[2019-01-03] MEDS ORDERED: ELIQUIS5 MG PO (13:19)
--- NOTE | 2019-01-03 18:35 | NUR ---
PT TO THE UNIT POST PACEMAKER/ICD PLACEMENT. PT ORINETED TO ROOM AND BEDSPACE - INCISION TO L CHEST C/D/I. LIGH GAUZE DRESSING INSITU. L ARM IN IMMOBILIZER. PT ERA DIET AND FLUIDS. NO CO'S OF PAIN OR NAUSEA. HAS REMAINED ON BEDREST. NO CO'S AT THE PRESENT TIME.
[2019-01-03 19:51] VITALS: BP 132/61
[2019-01-04 00:39] VITALS: BP 138/66
--- NOTE | 2019-01-04 05:34 | NUR ---
ASSUMED CARE AT 1900 WITH NO SIGN OF DISTRESS NOTED IN PT. PT IS ALERT AND ORIENTED, PT IS STABLE FORM PACEMAKER PLACEMENT TO LEFT CHEST. PT HAS ARM IMMOBILIZER IN PLACE. PT IS STABLE. SCHEDULED MEDS ADMINISTERED TO PT. PT DENIES ANY NEEDS AT THIS TIME EXECEPT FOR SORENESS TO INCISION SITE, DENIES ANY FURTHER NEEDS AT THIS TIME.
[2019-01-04 05:39] VITALS: BP 132/74
[2019-01-04 08:17] VITALS: BP 133/67
[2019-01-04 08:54] VITALS: BP 133/67
--- NOTE | 2019-01-04 11:47 | NUR ---
PT LEFT WITH WHEEL CHAIR AND BELONGINGS DISCHARGE INSTRUCTIONS GIVEN TO PT AND VERBALIZES UNDERSTANDING. NO ISSUES OR CONCERNS NOTED AT THIS TIME.
--- NOTE | 2019-01-05 08:42 | D ---
[facility] [place] [address] DISCHARGE SUMMARY Name: CHATO BOURGEOIS [facility] [id number] Admission: 01/03/19 ������������������ Attend Phys: Domenico Cotton MD Discharge: 01/04/19 ������������������ Date of : 53 Report #: [id number] THIS REPORT FOR: //name// CC: Domenico Cotton Juventino Poole DATE OF SERVICE: 01/04/2019 FINAL DIAGNOSES: 1. Status post implantable cardioverter defibrillator implant. 2. Ischemic cardiomyopathy. 3. Atrial fibrillation, status post ablation. 4. History of coronary artery bypass graft. 5. Hypertension. 6. Hyperlipidemia. 7. Chronic obstructive pulmonary disease. HOSPITAL COURSE: Please see the original H and P for full details. He has a history of ischemic cardiomyopathy, EF in the 30%-35% range after optimal medical management. He has class 2-3 heart failure symptoms. He underwent placement of a dual chamber ICD by Dr. Cotton. He remained stable overnight. The rhythm is atrial paced, ventricular sensed at this time. The chest x-ray is unremarkable. He is stable for discharge and given a followup appointment with Dr. Cotton. DISPOSITION: Imdur 60, albuterol inhaler, aspirin 81 mg, Cozaar 25, omeprazole, Bystolic 5, torsemide 20, amiodarone 200 mg, inhaler, Zetia, Eliquis is on hold until he sees EP on followup. ��������������������������������������������� <ELECTRONICALLY SIGNED> ���������������������������������������� By: Wilmer Rodríguez MD ��������������������������������������������� 01/05/19 0842 1021 2114 Wilmer Rodríguez MD /nt
== END 2019-01-04 13:20 | disposition home or self-care (01) ==
LOC: CATH 09:40 → 2N 15:54 → CATH 01-04 13:20
PROVIDERS: Internal Medicine Cardiovascular Disease
DX: I25.5 Ischemic cardiomyopathy (principal); I11.0 Hypertensive heart disease with heart failure; I50.9 Heart failure, unspecified; I48.0 Paroxysmal atrial fibrillation; I25.10 Atherosclerotic heart disease of native coronary artery without angina pectoris; I25.2 Old myocardial infarction; I48.92 Unspecified atrial flutter; E78.5 Hyperlipidemia, unspecified; K21.9 Gastro-esophageal reflux disease without esophagitis; E78.00 Pure hypercholesterolemia, unspecified; N40.0 Benign prostatic hyperplasia without lower urinary tract symptoms; J43.9 Emphysema, unspecified; F32.9 Major depressive disorder, single episode, unspecified; F41.9 Anxiety disorder, unspecified; Z98.890 Other specified postprocedural states; Z87.891 Personal history of nicotine dependence; Z95.5 Presence of coronary angioplasty implant and graft; Z79.01 Long term (current) use of anticoagulants; Z79.899 Other long term (current) drug therapy; Z95.1 Presence of aortocoronary bypass graft; Z79.82 Long term (current) use of aspirin

== ENCOUNTER 2019-05-25 11:52 | Inpatient (IN) | payer OTHER, BC ==
[~2019-05-25] VITALS: Ht 185.4 cm; Wt 112.0 kg
[~2019-05-25 11:52] MED LIST changes: +ELIQUIS5 MG PO
[2019-05-25 11:53] VITALS: BP 91/57
[2019-05-25] MEDS ORDERED: BENADRYL25 MG PO (12:00)
[2019-05-25] MEDS ORDERED: BYSTOLIC20 MG PO (12:01)
[2019-05-25] MEDS ORDERED: COZAAR 25 MG TA25 M1 PO (12:01)
[2019-05-25 12:08] LABS: HEMATOCRIT 30.6 % (42.0-52.0); HEMOGLOBIN 9.4 gm/dL (14.0-18.0); MCH 24.4 pg (26.0-34.0); MCHC 30.6 g/dL (28.0-37.0); MCV 79.5 fL (80.0-100.0); RBC 3.84 mil/uL (4.50-6.00); WBC 7.7 thou/uL (4.0-11.0)
[2019-05-25 12:11] LABS: ANION GAP 10 mmol/L (7-16); BUN 14 mg/dL (7-18); CALCIUM 9.6 mg/dL (8.5-10.1); CHLORIDE 99 mmol/L (98-107); CO2 27 mmol/L (21-32); CREATININE 1.7 mg/dL (0.7-1.3); GLUCOSE 113 mg/dL (74-106); POTASSIUM 4.1 mmol/L (3.5-5.1); SODIUM 136 mmol/L (136-145)
[2019-05-25 12:21] LABS: ALBUMIN 3.6 g/dL (3.4-5.0); MAGNESIUM 1.7 mg/dL (1.8-2.4); SGOT 119 U/L (15-37); SGPT 80 U/L (30-65); TOTAL BILIRUBIN 0.4 mg/dL (<0.1-1.0); TOTAL PROTEIN 8.1 g/dL (6.4-8.2); TROPONIN-I <0.06 ng/mL (<0.06)
[2019-05-25 12:49] VITALS: BP 91/57
[2019-05-25 14:46] LABS: URINE BILIRUBIN NEGATIVE (Negative); URINE BLOOD NEGATIVE (Negative); URINE CLARITY CLEAR; URINE COLOR YELLOW; URINE GLUCOSE-RANDOM* NEGATIVE (Negative); URINE KETONES NEGATIVE (Negative); URINE LEUKOCYTES-REFLEX NEGATIVE (Negative); URINE NITRITE-REFLEX NEGATIVE (Negative); URINE PROTEIN (DIPSTICK) NEGATIVE (Negative); URINE SPECIFIC GRAVITY <= 1.005 (1.005-1.035); URINE UROBILINOGEN 0.2 E.U./dl (0.2-1.0)
[2019-05-25 17:00] VITALS: BP 114/74
[2019-05-25 20:00] VITALS: BP 113/60
[2019-05-26] VITALS: BP 107/63
[2019-05-26 04:33] VITALS: BP 109/61
--- NOTE | 2019-05-26 05:57 | NUR ---
ASSESSMENTS CHARTED. ARRIVED FROM HOME WITH CHEST PAIN, AFIB W/ RVR. WORKED UP IN ED AND TRANSFERED TO ICU POD 3 FOR CCU HOLDING. PATIENTS TROPONINS HAVE BEEN NEGATIVE. ICD/PM FUNCTIONING. SINUS TACH DURING SHIFT. UP AT [facility] IN ROOM, DENIES PAIN. APIXABAN PLACED ON HOLD PER DR. BRINK. PLAN OF CARE MAY INCLUDE GOING HOME TODAY.
[2019-05-26 06:10] LABS: HEMOGLOBIN 8.1 gm/dL (14.0-18.0); MCH 24.7 pg (26.0-34.0); MCHC 31.3 g/dL (28.0-37.0); MCV 78.9 fL (80.0-100.0); RBC 3.3 mil/uL (4.50-6.00); RDW 17.9 % (10.5-14.5); WBC 6.1 thou/uL (4.0-11.0)
[2019-05-26 06:32] LABS: ANION GAP 6 mmol/L (7-16); BUN 16 mg/dL (7-18); CALCIUM 9.1 mg/dL (8.5-10.1); CHLORIDE 103 mmol/L (98-107); CO2 28 mmol/L (21-32); CREATININE 1.5 mg/dL (0.7-1.3); GLUCOSE 87 mg/dL (74-106); MAGNESIUM 2.2 mg/dL (1.8-2.4); POTASSIUM 3.9 mmol/L (3.5-5.1); SODIUM 137 mmol/L (136-145); TROPONIN-I <0.06 ng/mL (<0.06)
--- NOTE | 2019-05-26 07:46 | EKG ---
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 : 1955 Requested By: Rohan Mcknight Order Number: [id number] MD: Bill Bianchi Measurements Intervals [place] Rate: 112 P: 0 ND: 32 QRS: 138 QRSD: 178 T: -27 QT: 440 QTc: 601 Interpretive Statements Ventricular-paced rhythm No further analysis attempted due to paced rhythm Compared to ECG 08/30/2018 07:18:52 Ventricular pacing now present Electronically Signed On 05-26-2019 7:46:01 CDT by Bill Bianchi [email or web address] ��������������������������������������������� <ELECTRONICALLY SIGNED> ���������������������������������������� By: Bill Bianchi MD, [facility] ��������������������������������������������� 05/26/19 0746 1149 1149 Bill Bianchi MD, [facility] /EPI
--- NOTE | 2019-05-26 08:23 | EKG ---
[place] [address] [facility] 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 : 1955 Requested By: Christiano Rios Order Number: [id number] MD: Bill Bianchi Measurements Intervals Novelty Rate: 107 P: 105 CO: 134 QRS: -17 QRSD: 106 T: 127 QT: 317 QTc: 423 Interpretive Statements Sinus tachycardia Poor R wave progression Nonspecific ST and T wave abnormality Compared to ECG 08/30/2018 07:18:52 Ventricular pacing is no longer present Electronically Signed On 05-26-2019 8:23:29 CDT by Bill Bianchi [email or web address] ��������������������������������������������� <ELECTRONICALLY SIGNED> ���������������������������������������� By: Bill Bianchi MD, [facility] ��������������������������������������������� 05/26/19822 3 3 Bill Bianchi MD, [facility] /EPI
--- NOTE | 2019-05-26 08:28 | HC ---
[facility] [place] [address] CONSULTATION Name: CHATO BOURGEOIS Room #: 251-P ADM IN M.R.#: [id number] Admission: 05/25/19 ������������������ Attend Phys: Christiano Rios MD Discharge: ������������������ Date of : 53 Report #: [id number] THIS REPORT FOR: //name// CC: [facility] physician/PCP Christiano Rios DATE OF SERVICE: 05/25/2019 CARDIOLOGY CONSULTATION INDICATION: Chest pain. HISTORY OF PRESENT ILLNESS: This is a 64-year-old gentleman with a history of CAD/CABG/ischemic cardiomyopathy, ICD, AFib, status post ablation, COPD, hypertension, presenting with chest pain. The patient reports that he woke up this morning, took his medications including losartan, Bystolic and torsemide around 7:00 a.m. He then proceeded to take a nap. He woke up a few hours later, diaphoretic and lightheaded. He took his blood, the systolic blood pressure was 70 mmHg. He had a dull ache on the left lateral chest area, nonradiating. The chest pain lasted for several hours in duration. There were no alleviating or aggravating factors. He came to the ER, his blood pressure was 91/57 mmHg. His pain had resolved by then. The patient reports that he has been eating normally without any recent fever or diarrhea. Several months ago, they did increase his losartan dose up to 100 mg daily. He denies any history of shortness of breath, orthopnea or discharges from the defibrillator. PAST MEDICAL HISTORY: CABG in 1997. Last catheterization in 2010 revealed patent quinault LAD and patent quinault dominant left circumflex artery. He has a history of ischemic cardiomyopathy, undergoing ICD implant in 12/2018. History of paroxysmal atrial fibrillation, status post ablation in 2018. History of COPD, hypertension and hypercholesterolemia. ALLERGIES: None. CURRENT MEDICATIONS: Include albuterol inhaler, amiodarone, Eliquis 5 mg b.i.d., aspirin once a day, Zetia 10, Imdur 60, Bystolic 10 mg daily, Prilosec, torsemide 20 mg daily and losartan 100 mg daily. SOCIAL HISTORY: Negative for tobacco use. FAMILY HISTORY: Negative for premature CAD. REVIEW OF SYSTEMS: A full 10-point review of systems performed. Only the pertinent positives and negatives are described in the HPI. PHYSICAL EXAMINATION: [facility] [address] [place] [address] CONSULTATION Name: CHATO BOURGEOIS Room #: 251-P [facility] IN M.R.#: [id number] Admission: 05/25/19 ������������������ Attend Phys: Christiano Rios MD Discharge: ������������������ Date of : 53 Report #: [id number] VITAL SIGNS: Blood pressure initially was 91/57, now increased to 114/74 mmHg, heart rate is 105 beats per minute. GENERAL APPEARANCE: This is a well-developed, well-nourished male in no acute distress. HEENT: Normocephalic, atraumatic. Oral mucosa moist. NECK: Supple. LUNGS: CTA. CARDIAC: Regular rate and rhythm, S1, S2 positive. ABDOMEN: Soft, nontender. EXTREMITIES: No edema, no cyanosis. NEUROLOGIC: Alert and oriented x 3. ECG reveals a ventricular paced rhythm. LABORATORY VALUES: Troponin is negative x 2. White count 7.7, hemoglobin is 9.4. Creatinine is 1.7. AST, ALT are elevated. ASSESSMENT AND PLAN: 1. Chest pain syndrome, had atypical left-sided chest pain while hypotensive from probable medications. The troponin levels are negative. He has not been experiencing any recent chest pains with exertion. May be related to the recent hypotensive event. Consider outpatient stress testing. 2. Hypotension, secondary to medications. Would hold losartan and torsemide at this time. Continue to follow his blood pressure. It has improved with hydration. 3. Paroxysmal atrial fibrillation, status post ablation. Continue with Eliquis. 4. Implantable cardioverter defibrillator, no discharges. We will need an interrogation. 5. Ischemic cardiomyopathy, stable with no evidence for congestion. ��������������������������������������������� <ELECTRONICALLY SIGNED> ���������������������������������������� By: Wilmer Rodríguez MD ��������������������������������������������� 05/26/19 0828 02 9 Wilmer Rodríguez MD /nt
[2019-05-26 09:07] LABS: ABSOLUTE RETIC COUNT 0.036 10^6/uL; OBSERVED RETIC COUNT 1.08 % (0.6-2.6)
[2019-05-26 09:08] LABS: % SATURATION 15 % (20-39); IRON 22 ug/dL (65-175); TIBC 150 ug/dL (250-450)
--- NOTE | 2019-05-26 10:23 | NUR ---
PT TO HAVE PHARM MPI TODAY, MORNING MEDICATIONS WILL BE GIVEN WHEN PT RETURNS. PT HAD WATER AND LEMON TORRES MARTINEZ SODA THIS MORNING, NO BREAKFAST OR CAFFIENE. PER NUC MED, PT WILL BE GOING AROUND 1230, PT NOTIFIED. WILL CONTINUE TO MONITOR.
--- NOTE | 2019-05-26 11:44 | 2DMMODE ---
[facility] [address] [place] [address] 2 D/M-MODE ECHOCARDIOGRAM Name: CHATO BOURGEOIS Room #: 251-P ADM IN M.R.#: [id number] ������������� Admission: 05/25/19 ������������� Attend Phys: Christiano Rios MD Discharge: ��� ������������� ��� Date of : 53 Date of Service: 05/26/19 1144 �� Report #: [id number] �������� ��������������������������������������������[id number] THIS REPORT FOR: //name// APPROVED REPORT Study performed: 05/26/2019 09:07:15 EXAM: Comprehensive 2D, Doppler, and color-flow Echocardiogram Patient Location: Bedside Room #: 251 Status: routine BSA: 2.35 HR: 102 bpm BP: 109/61 mmHg Other Information Study Quality: Adequate Indications CAD Hypertension/HDD SOA, ICM 2D Dimensions RVDd: 36.87 mm IVSd: 10.40 (7-11mm) LVOT Diam: 20.57 (18-24mm) LVDd: 57.19 mm PWd: 10.37 (7-11mm) Ascending Ao: 33.28 (22-36mm) LVDs: 51.80 (25-40mm) Aortic Root: 36.82 mm IVC: 20.00 mm Volumes Left Atrial Volume (Systole) Single Plane 4CH: 33.07 mL Single Plane 2CH: 47.55 mL LA ESV Index: 18.00 mL/m2 Aortic Valve AoV Peak Mark.: 1.22 m/s AO Peak Gr.: 5.97 mmHg LVOT Max P.77 mmHg LVOT Max V: 0.83 m/s LESLI Vmax: 2.26 cm2 AI Vmax: 3.26 m/s AI [place]: 2.05 m/s2 AI PHT: 462.74 ms [facility] [place] [address] 2 D/M-MODE ECHOCARDIOGRAM Name: CHATO BOURGEOIS Room #: 251- ADM IN M.R.#: [id number] ������������� Admission: 05/25/19 ������������� Attend Phys: Christiano Rios MD Discharge: ��� ������������� ��� Date of : 53 Date of Service: 05/26/19 1144 �� Report #: [id number] �������� ��������������������������������������������[id number] Mitral Valve MV Decel. Time: 161.81 ms MV E Max Mark.: 0.90 m/s IVRT: 107.27 ms Pulmonary Valve PV Peak Mark.: 1.13 m/s PV Peak Gr.: 5.09 mmHg Tricuspid Valve TR Peak Mark.: 2.45 m/s RAP Estimate: 5.00 mmHg TR Peak Gr.: 23.91 mmHg PA Pressure: 29.00 mmHg Left Ventricle Left ventricle is mildly dilated. There is normal left ventricular wall thickness. Left ventricular systolic function is severely decreased.globally LVEF is 25-30%. This study is not technically sufficient to allow evaluation of the LV diastolic function. Right Ventricle The right ventricle is normal size. Right ventricle is moderately hypokinetic. Atria The left atrium size is normal. The right atrium size is normal. Aortic Valve The aortic valve is normal in structure. Mild aortic regurgitation. There is no aortic valvular stenosis. Mitral Valve The mitral valve is normal in structure. Mild mitral regurgitation. No evidence of mitral valve stenosis. Tricuspid Valve The tricuspid valve is normal in structure. Mild tricuspid regurgitation. PAP is estimated at 29 mmHg. Pulmonic Valve The pulmonary valve is normal in structure. There is no pulmonic valvular regurgitation. Great Vessels The aortic root is normal in size. IVC is normal in size and collapses >50% with inspiration. [facility] [address] [place] [address] 2 D/M-MODE ECHOCARDIOGRAM Name: CHATO BOURGEOIS Room #: 251-P ADM IN M.R.#: [id number] ������������� Admission: 05/25/19 ������������� Attend Phys: Christiano Rios MD Discharge: ��� ������������� ��� Date of : 53 Date of Service: 05/26/19 1144 �� Report #: [id number] �������� ��������������������������������������������[id number] Pericardium There is no pericardial effusion. <Conclusion> Left ventricle is mildly dilated. Left ventricular systolic function is severely decreased.globally LVEF is 25-30%. This study is not technically sufficient to allow evaluation of the LV diastolic function. Right ventricle is moderately hypokinetic. The left atrium size is normal. Mild aortic regurgitation. Mild mitral regurgitation. Mild tricuspid regurgitation. PAP is estimated at 29 mmHg. The aortic root is normal in size. There is no pericardial effusion. ��������������������������������������������� <ELECTRONICALLY SIGNED> ���������������������������������������� By: Sam Castellanos MD, FAC ��������������������������������������������� 05/26/19 1144 1144 1144 Sam Castellanos MD, LOCATED WITHIN [facility] /INF
--- NOTE | 2019-05-26 15:38 | NUR ---
PT RETURNED FROM NUCLEAR MEDICINE. MONITOR REAPPLIED.
[2019-05-26 15:49] VITALS: BP 116/63
--- NOTE | 2019-05-26 17:10 | NUR ---
met with patient, and dtr at bedside. Patient resides at home with spouse all needs on one level. PCP Dr Poole. Independent with adls and self care and cont to drive. Dtr reports can assist her father at dc if any needs. Patient, and dtr anticipate no needs at dc. casemgt following.
--- NOTE | 2019-05-27 04:43 | NUR ---
PATIENTS CARES WERE ASSUMED AT SHIFT CHANGE. PATIENT WAS ASSESSED AND MEDS WERE PASSED. PATIENT DID SLEEP THE MAJORITY OF THE SHIFTROUNDING HOURLY WAS DONE ON THIS PATIENT. THE BED ALARM IS ON . THE BED IS IN A LOW AND LOCKED POSITION. NO COMPLAINTS OF PAIN OR REQUEST WERE MADE.
[2019-05-27 09:00] LABS: HEMATOCRIT 27.7 % (42.0-52.0); HEMOGLOBIN 8.5 gm/dL (14.0-18.0); MCH 24.6 pg (26.0-34.0); MCHC 30.9 g/dL (28.0-37.0); MCV 79.6 fL (80.0-100.0); RBC 3.47 mil/uL (4.50-6.00); RDW 18.2 % (10.5-14.5)
[2019-05-27 09:08] LABS: CALCIUM 9.3 mg/dL (8.5-10.1); CREATININE 1.4 mg/dL (0.7-1.3); POTASSIUM 4.2 mmol/L (3.5-5.1)
[2019-05-27 09:58] VITALS: BP 126/73
--- NOTE | 2019-05-27 11:05 | NUR ---
PT TO EGD, TRANSPORTED VIA CART WITH [facility] [employer] MAIL [employer]IVER.
[2019-05-27 13:34] VITALS: BP 127/71
[2019-05-27 16:22] VITALS: BP 126/66
--- NOTE | 2019-05-27 17:00 | NUR ---
REPORT CALLED TO Thais TENORIOW. PT TRANSPORTED WITH NURSING STAFF VIA WHEELCHAIR TO 3W, ROOM 349.
--- NOTE | 2019-05-27 17:14 | NUR ---
ASSUMED CARE AT 0700. PT A&OX4. PT UP AD ENZO, STEADY ON FEET. PT HAD EGD TODAY AND WILL HAVE COLONOSCOPY TOMORROW. PT IS VERY CONCERNED WITH DOING BOWEL PREP IN ICU ROOM DUE TO PRIVACY ISSUES. HYDROPRESS OPERATOR NOTIFIED. ROOM ASSIGNMENT MADE AND PT TRANSFERRED TO .
[2019-05-27 17:25] VITALS: BP 136/90
[2019-05-27 19:15] VITALS: BP 144/84
[2019-05-28 03:26] VITALS: BP 135/72
--- NOTE | 2019-05-28 05:40 | NUR ---
SLEPT PART OF SHIFT PAST COMPLETING COLONOSCOPY PREP. UP AD ENZO TO BATHROOM WITH STEADY GAIT. LAST STOOL AT 0315 WAS CLEAR LIGHT YELLOW WITH ONE SMALL JENSEN OF STOOL. STATES FEELS EMPTY. NO FURTHER COMPLAINTS OF HEADACHE. VSS. TELEMETRY SHOWS ST WITH PVC AND VPACED AT TIMES. WORKING ON GOALS AND PLAN OF CARE FOR NOC. PROGRESSING SLOWLY TOWARDS DISCHARGE GOALS. CONTINUE TO ASSES CLOSELY.
[2019-05-28 08:41] VITALS: BP 117/73
--- NOTE | 2019-05-28 14:31 | NUR ---
SW reviewed chart and spoke with nursing and attending physician. Pt was transferred to 3 from ICU yesterday and is progressing towards goals for discharge. Pt to have colonoscopy today. Plan is for pt to discharge home when medically stable. SW is following to assist as needed with discharge planning.
--- NOTE | 2019-05-28 15:55 | NUR ---
PT ALERT AND ORIENTED TIEMS FOUR. VSS, PT DENIES PAIN/SOA. PT NPO THIS MORNING FOR COLONOSCOPY TODAY. PT UP AB ENZO WITH STEADY GAIT. PT SLOWLY PROGRESSING TOWRADS POC GOALS.
--- NOTE | 2019-05-28 19:06 | PATH ---
[facility] [place] [address] [address] PATHOLOGY RPT PROCEDURE Name: FILEMON HENRY Room #: 349-I ADM IN M.R.#: [id number] ������������������ Admission: 05/25/19 ������������������ Date of : 53 Discharge: Report #: [id number] Path Case #: [id number] [facility] Accession Number: [id number] . 01 Material submitted: . PART A: small bowel - BIOPSY OF SMALL BOWEL TO R/OUT CELIAC PART B: stomach - BIOPSY OF GASTRITIS . 01 Clinical history: . Anemia . 02 Diagnosis: A. Small bowel, rule out celiac, endoscopic biopsy: - No diagnostic abnormalities present. - Negative for villous blunting or increase in intraepithelial lymphocytes. . B. Gastric mucosa, gastritis, endoscopic biopsy: - Mild chronic active gastritis with features of reactive gastropathy. - Negative for intestinal metaplasia or atrophy. - Negative for Helicobacter pylori (properly-controlled immunohistochemical stain performed). . (IUV:mml; 05/28/2019) QL 05/28/2019 1230 Local . 02 Electronically signed: . Pastora Cruz MD, Pathologist NPI- [id number] . 01 Gross description: . A. The specimen is received in formalin, labeled "Filemon Henry BX of small bowel to rule out celiac" and consists of multiple fragments of soft youssef tissue measuring 0.9 x 0.7 x 0.2 cm in aggregate which are entirely submitted in A1. . B. The specimen is received in formalin, labeled "Filemon Henry BX of gastritis" and consists of multiple fragments of soft pink-youssef tissue measuring 1.1 x 0.9 x 0.2 cm in aggregate which are entirely submitted in B1. (SDY; 05/27/2019) SYU/SYU 05/27/2019 1612 Local . 02 Pathologist provided ICD-10: K29.50, D64.9 . 02 [place] [address] PATHOLOGY RPT PROCEDURE Name: FILEMON HENRY Room #: 349-I ADM IN ..#: [id number] ������������������ Admission: 05/25/19 ������������������ Date of : 53 Discharge: Report #: [id number] Path Case #: [id number] Specimen Comment: A courtesy copy of this report has been sent to Specimen Comment: [phone], . Specimen Comment: Report sent to / DR MANJARREZ Performed at: [address], [place], [place] [id number] MD Jace Cleveland MD Phone: [phone] Performed at: [address] [id number] MD Pastora Cruz MD Phone: [phone]
[2019-05-28 19:21] VITALS: BP 89/50
[2019-05-28 19:45] VITALS: BP 109/70
[2019-05-29 03:44] VITALS: BP 122/78
[2019-05-29 05:43] LABS: HEMOGLOBIN 7.6 gm/dL (14.0-18.0); MCH 24.4 pg (26.0-34.0); MCHC 30.6 g/dL (28.0-37.0); MCV 79.7 fL (80.0-100.0); RBC 3.13 mil/uL (4.50-6.00); RDW 18.3 % (10.5-14.5); WBC 6.5 thou/uL (4.0-11.0)
[2019-05-29 06:06] LABS: CALCIUM 9.1 mg/dL (8.5-10.1); CREATININE 1.2 mg/dL (0.7-1.3)
--- NOTE | 2019-05-29 06:36 | NUR ---
SLEPT PART OF SHIFT. UP AD ENZO WITH STEADY GAIT. DENIES COMPLAINTS THIS AM. HOPES TO SHOWER AFTER BREAKFAST AND THEN GO HOME. WORKING ON GOALS AND PLAN OF CARE FOR NOC. PROGRESSING SLOWLY TOWARDS DISCHARGE GOALS. CONTINUE TO ASSES CLOSELY.
[2019-05-29 07:30] VITALS: BP 118/77
[2019-05-29 11:00] VITALS: BP 113/68
--- NOTE | 2019-05-29 12:02 | P ---
[facility] [place] [address] [address] PROCEDURE REPORT Name: CHATO BOURGEOIS Room #: 349-I ADM IN M.R.#: [id number] Admission: 05/25/19 ������������������ Attend Phys: Christiano Rios MD Discharge: ������������������ Date of : 53 Report #: [id number] THIS REPORT FOR: //name// CC: [facility] physician/PCP Christiano Rios MD PROCEDURE: Colonoscopy with multiple polypectomies. PATIENT OF: Dr. Christiano Rios. INDICATION FOR PROCEDURE: This patient has an iron deficiency anemia of undetermined etiology. Colonoscopy is being performed to evaluate for possible sources of blood loss. Informed consent for this procedure was obtained prior to the administration of any medication. The risks of the procedure, which include bleeding, perforation, infection, complications of sedation and the possibility I could miss something have been explained to the patient and he has indicated his consent by signing. Anesthesia kindly provided deep sedation for this procedure for the patient. DESCRIPTION OF PROCEDURE: With the patient in the left lateral decubitus position, digital rectal was performed and no abnormalities were palpable. Then, the Olympus colonoscope was introduced through the anal sphincter and advanced under direct visualization to the terminal ileum. Findings are noted on withdrawal of the scope. The terminal ileal mucosa appears normal with florid villi. The ileocecal valve is normal. The cecum appears normal. In the proximal ascending colon, there is a small 4 mm sessile polyp was removed in toto with a hot snare and sent to pathology lab. Good hemostasis was noted after that polypectomy. Retroflex view in the ascending colon did not reveal any lesions on the back sides of the folds as far as my visualization was possible. The scope was then straightened and circumferential views of the colon were obtained on slow withdrawal of the scope as follows. In the distal ascending colon, there were 2 pedunculated polyps, size is approximately 5-7 mm, were removed in toto with a hot snare and sent to pathology lab along with a collection of all the polyps that we removed from the proximal colon extending from the proximal ascending to the mid transverse colon. At the distal transverse colon, multiple polyps ranging from 4 mm to 10 mm were removed in toto with a hot snare and sent to pathology lab. Good hemostasis was noted after all of those polypectomies. The remaining transverse colonic mucosa appears normal. At the splenic flexure, there is a single 6-mm pedunculated polyp that was removed in toto with a hot snare and sent to pathology lab from the splenic flexure. The remaining splenic flexure appeared normal. Descending colon, normal mucosa. Sigmoid colon, normal mucosa. Rectum, normal mucosa. [address] [address] PROCEDURE REPORT Name: CHATO BOURGEOIS Room #: 349-I ADM IN M.R.#: [id number] Admission: 05/25/19 ������������������ Attend Phys: Christiano Rios MD Discharge: ������������������ Date of : 53 Report #: [id number] Retroflex view did not reveal any further abnormalities. The scope was withdrawn slowly through the anal canal and no other abnormalities are seen. The scope was then advanced up into the cecum again and using a Pleitez net, all of the 7 proximal colon polyps were collected in the Pleitez net and placed in individual bottles and sent to pathology lab. There were 4 in the very proximal transverse and distal ascending colon and then there were several more further in the transverse colon and one at the splenic flexure, all of these were sent to pathology lab. Good hemostasis was again noted on the second pass through the colon. The scope was then withdrawn. The patient went to the recovery area in stable condition. He tolerated the procedure well. IMPRESSION: Multiple colon polyps removed from the proximal to the mid transverse colon and a single splenic flexure polyp was removed also as above. RECOMMENDATIONS: To await the path report. The sizes of these polyps varied from approximately 4-10 mm in size. If any of them are adenomatous colon polyps based on the size, he would probably have to return in approximately 3 years for colonoscopy surveillance. Thank you very much once again for allowing me to participate in his care. ��������������������������������������������� <ELECTRONICALLY SIGNED> ���������������������������������������� By: Lyric Medeiros DO ��������������������������������������������� 05/29/19 1202 1550 0141 Lyric Medeiros DO /nt
--- NOTE | 2019-05-29 12:25 | NUR ---
SW reviewed chart and spoke with nursing and attending physician. Pt had colonoscopy yesterday. No findings. Pt's hemoglobin dropped. Pt will not discharge home today. Pt may need M2 capsule study. Discharge plan is for pt to return home when medically stable. DAX is following to assist as needed with discharge planning.
[2019-05-29 13:46] VITALS: BP 129/85; BP 132/83
--- NOTE | 2019-05-29 17:11 | NUR ---
PATIENT RECIEVED BLOOD THIS AFTERNOON AND REACTION NOTED. HE IS ALERT ORIENTED X4. PLEASANT. COMPLAINTS OF HEADACHE BUT NO PAIN. IF OB IS NEGATIVE HE MAY DISCHARGE HOME IN THE AM. IF POSITIVE HE MAY HAVE TO DO CAPSULE SWALLOW. WILL CONT WITH PLAN OF CARE.
[2019-05-29 19:04] VITALS: BP 129/75
[2019-05-30 03:37] VITALS: BP 129/79
[2019-05-30 05:30] LABS: HEMATOCRIT 27.4 % (42.0-52.0); HEMOGLOBIN 8.6 gm/dL (14.0-18.0)
[2019-05-30 05:32] LABS: HEMATOCRIT 27.3 % (42.0-52.0); HEMOGLOBIN 8.7 gm/dL (14.0-18.0); MCH 25.9 pg (26.0-34.0); MCHC 31.8 g/dL (28.0-37.0); MCV 81.6 fL (80.0-100.0); RBC 3.35 mil/uL (4.50-6.00); RDW 18.6 % (10.5-14.5)
[2019-05-30 05:49] LABS: ALBUMIN 3.2 g/dL (3.4-5.0); CREATININE 1.2 mg/dL (0.7-1.3); DIRECT BILIRUBIN 0.2 mg/dL (<0.1-0.3); MAGNESIUM 1.9 mg/dL (1.8-2.4); POTASSIUM 3.7 mmol/L (3.5-5.1); TOTAL BILIRUBIN 0.5 mg/dL (<0.1-1.0); TOTAL PROTEIN 6.9 g/dL (6.4-8.2)
--- NOTE | 2019-05-30 06:19 | NUR ---
ASSUMED CARE AT 1900. PT DENIES SOB OVERNIGHT. REPORTED SINUS HEADACHE W/ NASAL DRAINAGE AT START OF SHIFT, GAVE TYLENOL AND MUCINEX AND PT REPORTED RELIEF. DENIED NAUSEA. PT HAS BEEN ST WITH FREQ PVC'S AND HR IN LOW 100'S, BUT SEVERAL TIMES WAS IN A TRIGEMINAL RHYTHM FROM THE PVC'S. THERE WAS TWO INSTANCES OF HIS PACEMAKER KICKING IN FOR 1-2 MINUTES AND HIS HR AT 120 BEFORE DROPPING BACK DOWN TO ST AROUND 104. NO OTHER CONCERNS, WILL CONTINUE TO MONITOR.
[2019-05-30 07:20] VITALS: BP 141/94; BP 147/85
[2019-05-30] MEDS ORDERED: COZAAR 25 MG TA25 M1 PO (09:25)
--- NOTE | 2019-05-30 10:22 | NUR ---
DISCHARGE NOTE: DAX reviewed chart and spoke with nursing and attending physician. Pt is medically stable for discharge home today. No discharge needs identified at this time, but is available to assist should needs arise.
[2019-05-30 11:05] VITALS: BP 129/79
--- NOTE | 2019-05-30 17:09 | PATH ---
[facility] [place] [address] PATHOLOGY RPT PROCEDURE Name: FILEMON HENRY Room #: 349-I DIS IN M.R.#: [id number] ������������������ Admission: 05/25/19 ������������������ Date of : 53 Discharge: 05/30/19 Report #: [id number] Path Case #: [id number] [facility] Accession Number: [id number] . 01 Material submitted: . PART A: colon - POLYPS COLLECTED FROM PROXIMAL COLON X4. Modifiers: proximal PART B: colon - POLYP AT DISTAL ASCENDING COLON. Modifiers: distal, ascending PART C: colon - POLYP AT TRANSVERSE COLON X2. Modifiers: transverse PART D: splenic flexure - POLYP AT SPLENIC FLEXURE . 01 Clinical history: . Preop DX: Anemia Postop DX: Colon polyps . 02 Diagnosis: A. Polyps x4, proximal colon, endoscopic biopsy: - Multiple fragments of tubular adenoma. - Negative for high grade dysplasia. . B. Polyp, at distal ascending colon, endoscopic biopsy: - Tubular adenoma. - Negative for high grade dysplasia. . C. Polyp x2, transverse colon, endoscopic biopsy: - Tubular adenoma identified in two fragments. - Negative for high grade dysplasia. . D. Polyp, at splenic flexure, endoscopic biopsy: - Tubular adenoma. - Negative for high grade dysplasia. . (IUV:mml; 05/30/2019) [facility] 05/30/2019 1529 Local . 02 Electronically signed: . Pastora Cruz MD, Pathologist NPI- [id number] . 01 Gross description: . A. The specimen is received in formalin labeled "Filemon Henry, polyps-proximal colon". The specimen source is listed on the requisition as "polyps collected from proximal colon x4". Received are four polypoid segments of youssef-brown soft tissue ranging from 0.8 x 0.7 x 0.6 cm to 1.0 x 0.7 x 0.7 cm in greatest dimensions. The suspected surgical margins are inked, and all four segments [place] [id number] PATHOLOGY RPT PROCEDURE Name: FILEMON HENRY Room #: 349-I [facility] IN M.R.#: [id number] ������������������ Admission: 05/25/19 ������������������ Date of : 53 Discharge: 05/30/19 Report #: [id number] Path Case #: [id number] cassettes A1 and A2. Also received within the specimen container is a 0.7 x 0.5 x 0.2 cm aggregate of yellow-green vegetative material, which is also submitted entirely in cassette A1. . B. Received in formalin labeled "Filemon Henry, polyp at distal ascending x2," is a segment of youssef soft tissue measuring 0.3 x 0.2 x 0.1 cm in greatest dimensions. No further tissue is identified within the specimen container. The specimen is submitted entirely in cassette B1. . C. The specimen is received in formalin labeled "Filemon Henry, polyp at transverse colon". The specimen source is listed on the requisition as "polyp at transverse colon x2". Received are five fragments of youssef soft tissue measuring 0.7 x 0.6 x 0.3 cm in aggregate dimensions and ranging from 0.2 to 0.5 cm in maximum dimension. The specimen is submitted entirely in cassette C1. . D. Received in formalin labeled "Filemon Henry, polyp at splenic flexure," is a segment of youssef soft tissue measuring 0.4 x 0.3 x 0.3 cm in greatest dimensions. The specimen is submitted entirely in cassette D1. ([facility]; 05/29/2019) XDC/XDC 05/29/[address] [place] [address] . 02 Pathologist provided ICD-10: D12.6, D12.2, D12.3 . 02 CPT . 077294, 529235, 285444, 373668 Specimen Comment: A courtesy copy of this report has been sent to Specimen Comment: [phone], . Specimen Comment: Report sent to / DR MANJARREZ Performed at: [address], [place] [id number] MD Jace Cleveland MD Phone: [phone] Performed at: [address] [id number] MD Pastora Cruz MD Phone: [phone]
--- NOTE | 2019-05-30 17:12 | P ---
[facility] [address] PROCEDURE REPORT Name: CHATO BOURGEOIS Room #: 349-I [facility] IN M.R.#: [id number] Admission: 05/25/19 ������������������ Attend Phys: Christiano Rios MD Discharge: 05/30/19 ������������������ Date of : 53 Report #: [id number] THIS REPORT FOR: //name// CC: [facility] physician/PCP BRIAN Rios INPATIENT UPPER ENDOSCOPY REPORT BRIEF HISTORY: The patient is a 64-year-old male with the atypical chest pain. He had a nonischemic nuclear stress yesterday. He does have some burning symptoms and he also has intermittent dysphagia, particularly for pills at level of the xiphoid process. PREOPERATIVE DIAGNOSES: Atypical chest pain. He also has a microcytic anemia. POSTOPERATIVE DIAGNOSES: Moderately severe diffuse gastritis without ulcers, erosions, or evidence of bleeding. MEDICATIONS: Deep sedation with propofol per anesthesia. SPECIMENS: 1. Small bowel biopsies to rule out celiac disease. 2. Biopsies of gastritis. ESTIMATED BLOOD LOSS: 3 mL. PROCEDURE: EGD with biopsy and Gutierrez dilation. FINDINGS: Prior to propofol sedation, procedure of upper endoscopy was discussed with the patient as well as potential risks and its complications. He indicates he understands and desires to proceed. DESCRIPTION OF PROCEDURE: With the patient in the left lateral decubitus position, the Olympus video endoscope was inserted in the cervical esophagus under direct vision without difficulty. Examination of this organ through its entire length revealed the normal esophageal mucosa down the squamocolumnar junction. Squamocolumnar junction was inspected and noted to be unremarkable. No ulcers or erosions were seen. There was no evidence of esophagitis. A hiatus hernia was not seen. He has had dysphagia, but a definite stricture, mass, or ring was not seen. Scope was advanced in the stomach and was examined on end view as well as retroflexed views. There was a moderate gastritis in the antrum of the stomach. The pattern was somewhat suggestive of telangiectasias, but there was no blood or friability. Multiple biopsies were obtained. Upon retroflexion, the proximal stomach was noted to be unremarkable. Specifically, no mass lesions were seen in the cardia. Pylorus was normal. Duodenal bulb was normal. Duodenal sweep down to third portion was normal. At that point, scope [facility] [address] [place] [address] PROCEDURE REPORT Name: CHATO BOURGEOIS Room #: 349-I DIS IN M.R.#: [id number] Admission: 05/25/19 ������������������ Attend Phys: Christiano Rios MD Discharge: 05/30/19 ������������������ Date of : 53 Report #: [id number] was slowly withdrawn and careful circumferential views confirmed the above finding. Biopsies obtained of the gastritis in view of his anemia. Gastric biopsies were obtained as well. The scope was withdrawn. The patient tolerated the procedure well. Subsequently, he was dilated with passage of a 52-Togolese Gutierrez dilator. There was no resistance. DISPOSITION: The patient with atypical chest pain. I do not find any lesions to explain chest pains. Specifically, there is no evidence of the esophagitis. However, we will treat him with pantoprazole and initially, we can start twice daily. In long run, he may only require 1 daily or less. We will follow up on biopsies and make further recommendations. Also, we will proceed with colonoscopy tomorrow in view of his anemia. ��������������������������������������������� <ELECTRONICALLY SIGNED> ���������������������������������������� By: Lg Herrera MD ��������������������������������������������� 05/30/19 1712 1250 0013 Lg Herrera MD /nt
== END 2019-05-30 12:26 | disposition home or self-care (01) | DRG 205 ==
LOC: ER 11:52 → ICU 13:18 → EROBS 13:18 → ICU 16:30 → 3W 05-27 17:13
PROVIDERS: Emergency Medicine; Internal Medicine Gastroenterology; Nurse Practitioner Adult Health; Nurse Practitioner Family; ADMIT Internal Medicine
PROC: 0DB68ZX Excision of Stomach, Via Natural or Artificial Opening Endoscopic, Diagnostic (ICD-10-PCS; principal; 2019-05-27)
PROC: 0DB88ZX Excision of Small Intestine, Via Natural or Artificial Opening Endoscopic, Diagnostic (ICD-10-PCS; principal; 2019-05-27)
PROC: 0D758ZZ Dilation of Esophagus, Via Natural or Artificial Opening Endoscopic (ICD-10-PCS; principal; 2019-05-27)
PROC: 0DBK8ZZ Excision of Ascending Colon, Via Natural or Artificial Opening Endoscopic (ICD-10-PCS; 2019-05-28)
PROC: 0DBL8ZZ Excision of Transverse Colon, Via Natural or Artificial Opening Endoscopic (ICD-10-PCS; 2019-05-28)
PROC: 30233N1 Transfusion of Nonautologous Red Blood Cells into Peripheral Vein, Percutaneous Approach (ICD-10-PCS; 2019-05-29)
DX: M94.0 Chondrocostal junction syndrome [Tietze] (principal); J96.01 Acute respiratory failure with hypoxia; N17.9 Acute kidney failure, unspecified; I13.0 Hypertensive heart and chronic kidney disease with heart failure and stage 1 through stage 4 chronic kidney disease, or unspecified chronic kidney disease; K29.70 Gastritis, unspecified, without bleeding; N18.9 Chronic kidney disease, unspecified; I25.10 Atherosclerotic heart disease of native coronary artery without angina pectoris; K21.9 Gastro-esophageal reflux disease without esophagitis; F32.9 Major depressive disorder, single episode, unspecified; F41.9 Anxiety disorder, unspecified; I48.0 Paroxysmal atrial fibrillation; N40.0 Benign prostatic hyperplasia without lower urinary tract symptoms; E78.00 Pure hypercholesterolemia, unspecified; I25.5 Ischemic cardiomyopathy; E78.5 Hyperlipidemia, unspecified; J43.9 Emphysema, unspecified; I95.9 Hypotension, unspecified; T50.905A Adverse effect of unspecified drugs, medicaments and biological substances, initial encounter; K63.5 Polyp of colon; D64.9 Anemia, unspecified; R13.10 Dysphagia, unspecified; Z96.659 Presence of unspecified artificial knee joint; J31.0 Chronic rhinitis; I50.9 Heart failure, unspecified; Z95.1 Presence of aortocoronary bypass graft; I25.2 Old myocardial infarction; Z95.5 Presence of coronary angioplasty implant and graft; Z87.891 Personal history of nicotine dependence; Z95.828 Presence of other vascular implants and grafts; Z82.49 Family history of ischemic heart disease and other diseases of the circulatory system; Z83.3 Family history of diabetes mellitus; Z87.11 Personal history of peptic ulcer disease; Z83.6 Family history of other diseases of the respiratory system; Z80.9 Family history of malignant neoplasm, unspecified; Z83.42 Family history of familial hypercholesterolemia; Z79.82 Long term (current) use of aspirin; Z79.899 Other long term (current) drug therapy
CPT/HCPCS: 10203; 10879; 62110; 62900; 70005

== ENCOUNTER → 2019-07-29 | Outpatient (CLI) | payer OTHER, BC ==
[~2019-07-29] VITALS: Ht 185.4 cm; Wt 118.0 kg
[~2019-07-29] MED LIST changes: +BENADRYL25 MG PO; +BYSTOLIC20 MG PO; +LANOXIN 0.25M0.25 M1 PO; +TOPROL XL100 MG PO
[2019-07-29 07:30] VITALS: BP 124/82
[2019-07-29 07:36] LABS: ABSOLUTE NEUTROPHILS 5.3 thou/uL (1.4-8.2); BASOPHILS 1.2 % (0.0-2.0); EOSINOPHILS 2.1 % (0.0-3.0); HEMATOCRIT 34.1 % (42.0-52.0); LYMPHOCYTES 17.8 % (24.0-44.0); MCH 29.7 pg (26.0-34.0); MCHC 32.4 g/dL (28.0-37.0); MCV 91.5 fL (80.0-100.0); MONOCYTES 5.9 % (1.0-8.0); PLATELET COUNT 149 thou/uL (150-400); RBC 3.72 mil/uL (4.50-6.00); RDW 20.9 % (10.5-14.5); WBC 7.3 thou/uL (4.0-11.0)
[2019-07-29 07:45] LABS: CALCIUM 9.5 mg/dL (8.5-10.1); CREATININE 1.4 mg/dL (0.7-1.3); POTASSIUM 3.9 mmol/L (3.5-5.1)
[2019-07-29 07:48] LABS: APTT 28.3 Seconds (24.5-32.8); INR 1.2; PROTIME 12.4 Seconds (9.3-11.4)
[2019-07-29 07:51] LABS: ALBUMIN 3.2 g/dL (3.4-5.0); TOTAL BILIRUBIN 0.6 mg/dL (<0.1-1.0); TOTAL PROTEIN 7.9 g/dL (6.4-8.2)
[2019-07-29 08:30] LABS: ANISOCYTOSIS 2+; OVALOCYTES FEW
--- NOTE | 2019-07-29 08:31 | NUR ---
0831-PT AWAKE, SLEEPING OFF AND ON. DENIES PAIN. VS STABLE. 02 DECREASED TO 2L N/C.
--- NOTE | 2019-07-29 08:50 | NUR ---
SITTING UP IN BED. 02 SATS 95% ON 2L. 02 REMOVED. TAKING SIPS OF WATER. VS STABLE
--- NOTE | 2019-08-04 14:00 | P ---
[facility] [place] [address] [address] [place] [address] PROCEDURE REPORT Name: CHATO BOURGEOIS Room #: [facility].#: [id number] Admission: 07/29/19 Attend Phys: Domenico Cotton MD Discharge: Date of : 53 Report #: [id number] THIS REPORT FOR: //name// CC: Domenico Poole PREOPERATIVE DIAGNOSIS: Atrial fibrillation. POSTOPERATIVE DIAGNOSIS: Atrial fibrillation. PROCEDURE: Cardioversion. DESCRIPTION OF PROCEDURE: The patient underwent informed consent. The patient was prepped in a standard fashion. The patient was sedated by the Anesthesiology service. Once sedated, he underwent a 200 joule synchronized cardioversion with adventism of sinus rhythm. Device interrogation showed normal device function post cardioversion. CONCLUSIONS: Successful DC cardioversion with adventism of sinus rhythm. <ELECTRONICALLY SIGNED> By: Domenico Cotton MD 08/04/19 1400 1612 2326 Domenico Cotton MD /nt
== END | disposition home or self-care (01) ==
LOC: CATH 07:02
PROVIDERS: Internal Medicine Cardiovascular Disease
DX: I48.91 Unspecified atrial fibrillation (principal); I48.92 Unspecified atrial flutter; I42.9 Cardiomyopathy, unspecified; I11.0 Hypertensive heart disease with heart failure; I50.9 Heart failure, unspecified; E78.2 Mixed hyperlipidemia; I25.2 Old myocardial infarction; N40.0 Benign prostatic hyperplasia without lower urinary tract symptoms; J43.9 Emphysema, unspecified; F32.9 Major depressive disorder, single episode, unspecified; D64.9 Anemia, unspecified; F41.9 Anxiety disorder, unspecified; K21.9 Gastro-esophageal reflux disease without esophagitis; Z95.1 Presence of aortocoronary bypass graft; E78.00 Pure hypercholesterolemia, unspecified; Z98.890 Other specified postprocedural states; Z87.891 Personal history of nicotine dependence; Z95.0 Presence of cardiac pacemaker; Z79.899 Other long term (current) drug therapy; Z79.01 Long term (current) use of anticoagulants
CPT/HCPCS: 62110; 62900

== ENCOUNTER → 2019-09-30 | Outpatient (CLI) | payer OTHER, BC | LOC: SJCVC 12:44 | DX: Z45.02 Encounter for adjustment and management of automatic implantable cardiac defibrillator (principal); R94.31 Abnormal electrocardiogram [ECG] [EKG]; I48.91 Unspecified atrial fibrillation; I25.5 Ischemic cardiomyopathy; I25.10 Atherosclerotic heart disease of native coronary artery without angina pectoris; E78.00 Pure hypercholesterolemia, unspecified; J44.9 Chronic obstructive pulmonary disease, unspecified; I11.0 Hypertensive heart disease with heart failure; I50.9 Heart failure, unspecified; E78.5 Hyperlipidemia, unspecified; I25.2 Old myocardial infarction; Z95.810 Presence of automatic (implantable) cardiac defibrillator; Z87.891 Personal history of nicotine dependence; Z79.82 Long term (current) use of aspirin; Z79.899 Other long term (current) drug therapy ==

== ENCOUNTER → 2020-01-23 | Outpatient (CLI) | payer OTHER, BC | LOC: SJCVC 10:28 → SJCVCIMAG 10:28 | DX: I25.810 Atherosclerosis of coronary artery bypass graft(s) without angina pectoris (principal); I48.91 Unspecified atrial fibrillation; I42.9 Cardiomyopathy, unspecified; I25.5 Ischemic cardiomyopathy; G47.33 Obstructive sleep apnea (adult) (pediatric); I65.23 Occlusion and stenosis of bilateral carotid arteries; I50.23 Acute on chronic systolic (congestive) heart failure; D68.59 Other primary thrombophilia; Z99.89 Dependence on other enabling machines and devices; Z95.1 Presence of aortocoronary bypass graft ==

== ENCOUNTER → 2020-03-18 | Outpatient (CLI) | payer OTHER, BC | LOC: SJCVC 15:47 | PROVIDERS: ATTEND Internal Medicine Cardiovascular Disease | DX: E78.00 Pure hypercholesterolemia, unspecified (principal) ==

== ENCOUNTER → 2020-03-26 | Outpatient (CLI) | payer OTHER, BC | LOC: CAT 10:33 | PROVIDERS: ATTEND Pediatrics | DX: Z12.2 Encounter for screening for malignant neoplasm of respiratory organs (principal); J98.4 Other disorders of lung; Z87.891 Personal history of nicotine dependence ==

== ENCOUNTER → 2020-05-03 | Outpatient (CLI) | payer OTHER, BC | LOC: SJCVC 13:04 | PROVIDERS: ATTEND Internal Medicine Cardiovascular Disease | DX: Z45.02 Encounter for adjustment and management of automatic implantable cardiac defibrillator (principal); I25.810 Atherosclerosis of coronary artery bypass graft(s) without angina pectoris; I25.5 Ischemic cardiomyopathy; E78.00 Pure hypercholesterolemia, unspecified; D68.59 Other primary thrombophilia; G47.33 Obstructive sleep apnea (adult) (pediatric); I11.0 Hypertensive heart disease with heart failure; I50.9 Heart failure, unspecified; I65.23 Occlusion and stenosis of bilateral carotid arteries; J44.9 Chronic obstructive pulmonary disease, unspecified; I25.2 Old myocardial infarction; I48.0 Paroxysmal atrial fibrillation; Z79.899 Other long term (current) drug therapy; Z82.49 Family history of ischemic heart disease and other diseases of the circulatory system; Z95.810 Presence of automatic (implantable) cardiac defibrillator; Z95.1 Presence of aortocoronary bypass graft; Z87.891 Personal history of nicotine dependence ==

== ENCOUNTER → 2020-11-08 | Outpatient (CLI) | payer OTHER, BC | LOC: SJCVCIMAG 07:42 | PROVIDERS: ATTEND Internal Medicine Cardiovascular Disease | DX: I65.23 Occlusion and stenosis of bilateral carotid arteries (principal); E78.00 Pure hypercholesterolemia, unspecified; I25.5 Ischemic cardiomyopathy; I25.10 Atherosclerotic heart disease of native coronary artery without angina pectoris; I48.91 Unspecified atrial fibrillation; G47.33 Obstructive sleep apnea (adult) (pediatric); I11.0 Hypertensive heart disease with heart failure; I50.9 Heart failure, unspecified; E78.5 Hyperlipidemia, unspecified; I25.2 Old myocardial infarction; I48.0 Paroxysmal atrial fibrillation; Z95.810 Presence of automatic (implantable) cardiac defibrillator; Z95.5 Presence of coronary angioplasty implant and graft; Z99.89 Dependence on other enabling machines and devices; Z98.890 Other specified postprocedural states; Z88.8 Allergy status to other drugs, medicaments and biological substances; Z79.82 Long term (current) use of aspirin; Z79.899 Other long term (current) drug therapy; Z87.891 Personal history of nicotine dependence; Z82.49 Family history of ischemic heart disease and other diseases of the circulatory system ==

== ENCOUNTER → 2021-03-29 | Outpatient (CLI) | payer OTHER, BC | LOC: CAT 06:52 | PROVIDERS: ATTEND Pediatrics | DX: Z12.2 Encounter for screening for malignant neoplasm of respiratory organs (principal); R91.1 Solitary pulmonary nodule; K80.20 Calculus of gallbladder without cholecystitis without obstruction; I70.0 Atherosclerosis of aorta; Z87.891 Personal history of nicotine dependence ==

== ENCOUNTER → 2021-06-09 | Outpatient (CLI) | payer OTHER, BC | LOC: SJCVCIMAG 05-11 07:30 | PROVIDERS: ATTEND Internal Medicine Cardiovascular Disease | DX: I08.8 Other rheumatic multiple valve diseases (principal); I65.23 Occlusion and stenosis of bilateral carotid arteries; I11.0 Hypertensive heart disease with heart failure; I50.9 Heart failure, unspecified; I48.91 Unspecified atrial fibrillation; I25.810 Atherosclerosis of coronary artery bypass graft(s) without angina pectoris; I25.5 Ischemic cardiomyopathy; E78.00 Pure hypercholesterolemia, unspecified; J44.9 Chronic obstructive pulmonary disease, unspecified; D68.59 Other primary thrombophilia; I63.9 Cerebral infarction, unspecified; E11.9 Type 2 diabetes mellitus without complications; G47.30 Sleep apnea, unspecified; E78.5 Hyperlipidemia, unspecified; R06.00 Dyspnea, unspecified; I48.92 Unspecified atrial flutter; I49.3 Ventricular premature depolarization; I42.9 Cardiomyopathy, unspecified; Z87.891 Personal history of nicotine dependence; Z79.82 Long term (current) use of aspirin; Z79.899 Other long term (current) drug therapy; Z95.810 Presence of automatic (implantable) cardiac defibrillator; Z95.1 Presence of aortocoronary bypass graft; Z82.49 Family history of ischemic heart disease and other diseases of the circulatory system; Z88.8 Allergy status to other drugs, medicaments and biological substances ==

== ENCOUNTER → 2021-09-13 | Outpatient (CLI) | payer OTHER, BC | LOC: SJCVC 13:31 | PROVIDERS: ATTEND Internal Medicine Cardiovascular Disease | DX: I49.3 Ventricular premature depolarization (principal); R94.31 Abnormal electrocardiogram [ECG] [EKG]; I48.92 Unspecified atrial flutter; I25.10 Atherosclerotic heart disease of native coronary artery without angina pectoris; I63.9 Cerebral infarction, unspecified; I11.0 Hypertensive heart disease with heart failure; I50.23 Acute on chronic systolic (congestive) heart failure; G47.33 Obstructive sleep apnea (adult) (pediatric); I42.9 Cardiomyopathy, unspecified; I65.23 Occlusion and stenosis of bilateral carotid arteries; D68.59 Other primary thrombophilia; D64.9 Anemia, unspecified; E11.9 Type 2 diabetes mellitus without complications; E78.5 Hyperlipidemia, unspecified; I48.0 Paroxysmal atrial fibrillation; Z95.1 Presence of aortocoronary bypass graft; Z95.810 Presence of automatic (implantable) cardiac defibrillator; Z99.89 Dependence on other enabling machines and devices; Z87.891 Personal history of nicotine dependence; Z82.79 Family history of other congenital malformations, deformations and chromosomal abnormalities; Z79.899 Other long term (current) drug therapy; Z88.8 Allergy status to other drugs, medicaments and biological substances; Z82.49 Family history of ischemic heart disease and other diseases of the circulatory system ==